=== PATIENT | male | born 1960 | race Caucasian/White ===

== ENCOUNTER → 2017-01-20 | Outpatient (REF) | payer MEDICARE ==
[2017-01-20 21:02] LABS: BANDS 1 % (< 11)
== END ==
LOC: M LAB REF 16:32
PROVIDERS: ATTEND Nurse Practitioner Family
DX: D72.89 Other specified disorders of white blood cells (principal)

== ENCOUNTER 2017-02-03 14:54 | Inpatient (IN) | payer MEDICARE ==
[~2017-02-03] VITALS: Ht 175.3 cm; Wt 74.0 kg
[2017-02-03] MEDS ORDERED: PAXI20TA3 PO (15:25)
[2017-02-03] MEDS ORDERED: DEPA1TAB3 PO ×2 (15:25)
[2017-02-03] MEDS ORDERED: [UNRECOGNIZED DRUG - OTHER] PO (15:25)
[2017-02-03] MEDS ORDERED: DOXE100CA PO (15:25)
[2017-02-03] MEDS ORDERED: RISP4TAB33 PO (15:25)
[2017-02-03] MEDS ORDERED: ASPIRIN 81 MG CHEW TABLET PO ONE (15:30)
[2017-02-03 15:35] LABS: VENOUS BASE EXCESS 3.7 (-2.0-2.0); VENOUS O2 SATURATION 78.2 % (60.0-80.0); VENOUS PARTIAL PRESSURE O2 43.8 mmHg (30.0-50.0); VENOUS STANDARD HCO3 27.2 MEQ/L
[2017-02-03 15:39] LABS: BASO % 0.2 % (0.0-1.0); EOS % 0.4 % (0.0-3.0); LARGE UNSTAINED CELL # 0.1 K/mm3 (0.0-0.4); LARGE UNSTAINED CELL % 1.2 % (0.0-4.0); LYMPH # 1.1 K/mm3 (1.5-4.5); LYMPH % 10.2 % (24.0-44.0); MEAN CORPUSCULAR HEMOGLOBIN 31.4 pg (27.0-33.0); MEAN CORPUSCULAR HGB CONC 33.8 g/dl (32.0-36.5); MEAN CORPUSCULAR VOLUME 92.7 fl (80.0-96.0); MONO # 0.8 K/mm3 (0.0-0.8); NEUTROPHILS # 8.8 K/mm3 (1.8-7.7); PLATELET COUNT, AUTOMATED 213 k/mm3 (150-450); RED CELL DISTRIBUTION WIDTH 12.9 % (11.5-14.5); WHITE BLOOD COUNT 10.9 K/mm3 (4.0-10.0)
--- NOTE | 2017-02-03 15:43 | REP ---
Clinical: Cough. Dyspnea . Comparison: 11/10/2016 . Technique: PA and lateral. Findings: The mediastinum and cardiac silhouette are normal. The lung myles demonstrate chronic stable changes and without acute consolidation, effusion, or pneumothorax. The skeletal structures are intact and normal. Impression: Chronic stable changes. No acute cardiopulmonary process identified. Signed by Robert Dozier MD 02/03/2017 03:34 P
[2017-02-03 15:46] LABS: INR 0.89
[2017-02-03 16:03] LABS: ALBUMIN 3.3 GM/DL (3.2-5.2); ALKALINE PHOSPHATASE 140 U/L (45-117); ALT/SGPT 53 U/L (12-78); ANION GAP 9 MEQ/L (8-16); AST/SGOT 38 U/L (15-37); BILIRUBIN,DIRECT 0.3 MG/DL (0.0-0.2); BILIRUBIN,TOTAL 0.5 MG/DL (0.2-1.0); BLOOD UREA NITROGEN 6 MG/DL (7-18); CALCIUM LEVEL 8.4 MG/DL (8.5-10.1); CARBON DIOXIDE LEVEL 28 MEQ/L (21-32); CHLORIDE LEVEL 98 MEQ/L (98-107); CREATININE FOR GFR 0.68 MG/DL (0.70-1.30); GLOMERULAR FILTRATION RATE > 60.0 (>56); GLUCOSE, FASTING 98 MG/DL (70-105); POTASSIUM SERUM 4.2 MEQ/L (3.5-5.1); SODIUM LEVEL 135 MEQ/L (136-145); TOTAL PROTEIN 6.3 GM/DL (6.4-8.2)
[2017-02-03] MEDS: IPRATROPIUM 0.5MG/ALBUTEROL 2.5MG INH SOL UD 3ML (DUONEB)(J7620) NEB PRN ×4 (16:18→20:25)
[2017-02-03] MEDS ORDERED: ALBUTEROL 90 MCG/ACT 8GM HFA INHALER INH ONE (17:00)
[2017-02-03] MEDS ORDERED: AVEL400T PO (17:35)
--- NOTE | 2017-02-03 17:39 | ECGEPIP ---
Stationary ECG Study [facility] - ED Test Date: 2017-02-03 Pat Name: DILIP MODI Department: Room: - Gender: M Registered Dietician: ct : 1960 Requested By: PILAR RAMOS Order Number: [id number] Reading MD: Gopal Van Measurements Intervals Mercer Rate: 101 P: 68 AL: 156 QRS: 65 QRSD: 125 T: 69 QT: 362 QTc: 471 Interpretive Statements SINUS TACHYCARDIA RIGHT BUNDLE BRANCH BLOCK NO PRIORS Electronically Signed On 02-03-2017 17:39:48 EDT by Gopal Van
[2017-02-03] MEDS ORDERED: MOXIFLOXACIN 400 MG TAB PO ONE (18:00)
[2017-02-03] MEDS ORDERED: ALBUTEROL SULFATE 2.5 MG/0.5 ML INH NEB SOLN NEB ONE ×2 (18:15→20:15)
[2017-02-03] MEDS ORDERED: methylPREDNISolone INJ 125 MG/2 ML VIAL (J2930) IV ONE (18:15)
[2017-02-03] MEDS ORDERED: ISOVUE-370 76% 100ML VIAL (Q9967) As Ordered ONE (18:58)
--- NOTE | 2017-02-03 19:41 | REP ---
Clinical: Shortness of breath. Technique: Axial contrast enhanced images from the thoracic inlet to the upper abdomen using 100 ml Isovue 370 intravenous contrast material with multiplanar re-formations. Comparison: 11/28/2016. Findings: Satisfactory enhancement of the pulmonary vasculature is achieved but evaluation is somewhat limited due to significant respiratory motion artifact. No obvious pulmonary emboli are identified. Lung myles demonstrate diffuse reticulonodular and ground-glass opacities without effusion or pneumothorax. Tracheobronchial tree is patent. Reactive mediastinal and hilar adenopathy noted. Thoracic aorta, heart and pericardium appear normal. Surrounding musculoskeletal structures are intact. Impression: 1. No definite pulmonary embolus. 2. Diffuse bilateral reticulonodular and ground-glass infiltrates suggest early multifocal pneumonia and bronchitis. Differential diagnosis also includes pneumonitis. Correlation and follow up to resolution are recommended. Signed by Robert Dozier MD 02/03/2017 07:33 P
[2017-02-03] MEDS ORDERED: ESTAZOLAM PO (20:41)
[2017-02-03] MEDS ORDERED: CLON0.5T PO (20:41)
[2017-02-03] MEDS ORDERED: NS 1,000 ML IV SCH (20:43)
[2017-02-03] MEDS ORDERED: ONDANSETRON 4MG/2ML VIAL (J2405) IV PRN (20:45)
[2017-02-03] MEDS ORDERED: ACETAMINOPHEN TAB 650MG DOSE (2X325MG) PO PRN (20:45)
[2017-02-03] MEDS ORDERED: ALBUTEROL SULFATE 2.5 MG/0.5 ML INH NEB SOLN INH PRN (21:00)
--- NOTE | 2017-02-03 21:08 | HPEPDOC ---
Medical History and Physical Date of Admission 02/03/17 History and Physical PRIMARY CARE PROVIDER: ATTENDING: Dr. Luz Perales CHIEF COMPLAINT: Short of breath HISTORY OF PRESENT ILLNESS: This is a 57-year-old male past history of bipolar disorder who presents complaining of being unsteady on his feet as well as shortness of breath over the past week. Patient states she's starting to have symptoms of lightheadedness and ataxia about a week ago has seen his primary doctor was prescribed "an equilibrium medication". No focal weakness. Patient also said he's been having shortness of breath at that's progressively worsening over the past week. He was initially dyspneic on exertion and now has progressed to rest. Has a nonproductive cough. No fevers or chills. No sick contacts or recent travels. Had been seen by his primary doctor placed him on a steroid taper as well as antibiotic however does not remember what the name of antibiotic was. In the ED patient was ambulated however desaturated to 85% on room air. Currently requiring 3 L of oxygen. Patient denies chest pain/palpitations. No syncopal episodes. No orthopnea or PND. No lower ext edema. PAST MEDICAL HISTORY: As per HPI PAST SURGICAL HISTORY: Hernia repair, left elbow surgery, left shoulder surgery , appendectomy SOCIAL HISTORY: FAMILY HISTORY: F - [place] age 70 ALLERGIES: Please see below. REVIEW OF SYSTEMS: HEENT: Denies sore throat/headache CARDIOVASCULAR: Denies chest pain/palpitations RESPIRATORY: + shortness of breath/cough GASTROINTESTINAL: Denies nausea/vomiting GENITOURINARY: Denies dysuria/urinary urgency. MUSCULOSKELETAL: Denies myalgias/arthralgias NEUROLOGICAL: Denies any focal weakness Rest of ROS negative. HOME MEDICATIONS: Please see below. PHYSICAL EXAMINATION: Vitals: (see below) General: No acute distress, laying comfortably in bed. HEENT: Moist mucous membranes. Neck: No JVD or lymphadenopathy Cardiac: RRR, No murmurs Pulm: Coarse crackles and exp wheezing b/l. No rhonchi. Abd: NT/ND + BS Ext: No edema or cyanosis Neuro: Strength 5/5 BUE and BLE. CN 2-12 intact. F to N - Mild dysmetria Negative Babinki. States he is unstable on his feet - deferred ambulation at this time. LABORATORY DATA: See below. IMAGING: CTA Chest 02/03/17 Impression: 1. No definite pulmonary embolus. 2. Diffuse bilateral reticulonodular and ground-glass infiltrates suggest early multifocal pneumonia and bronchitis. Differential diagnosis also includes pneumonitis. Correlation and follow up to resolution are recommended. MICROBIOLOGY: Please see below. ASSESSMENT/PLAN: 1. Acute COPD exacerbation secondary to multifocal pneumonia - we'll start patient on broad-spectrum antibiotics as he did fail outpatient therapy. CT scan with likely early stage of multifocal pneumonia. We'll send urine Legionella and strep. Sputum culture. Respiratory panel. Nebulizers. Steroids. 2. Dysmetria/ataxia- patient has agreed to a CAT scan of the head however would like to hold off on MRI of the brain at this time. Neuro checks. Questionable whether this is labyrinthitis from his recent upper respiratory tract infection/ pneumonia. Neuro checks. 3. Tobacco abuse- cessation consult. Nicotine patch. 4. Bipolar disorder- resume home meds 5. DVT prophylaxis- enoxaparin Patient will be followed by Dr. Luz Perales starting 02/04/17 at 7 AM. Vital Signs Vital Signs Date Time Temp Pulse Resp B/P Pulse Ox O2 Delivery O2 Flow Rate FiO2 02/03/17 14:56 99.7 95 20 151/84 Room Air 02/03/17 15:29 91 02/03/17 16:18 3 Laboratory Data Labs 24H Laboratory Tests 2 02/03/17 15:19: Aspartate Amino Transf (AST/SGOT) 38H, Alanine Aminotransferase (ALT/SGPT) 53, Alkaline Phosphatase 140H, Total Bilirubin 0.5, Direct Bilirubin 0.3H, Albumin 3.3, Albumin/Globulin Ratio 1.10, Anion Gap 9, White Blood Count 10.9H, Red Blood Count 4.59, Hemoglobin 14.4, Hematocrit 42.5, Mean Corpuscular Volume 92.7 , Mean Corpuscular Hemoglobin 31.4, Mean Corpuscular Hemoglobin Concent 33.8, Red Cell Distribution Width 12.9, Platelet Count 213, Neutrophils (%) (Auto) 81.0H, Lymphocytes (%) (Auto) 10.2L, Monocytes (%) (Auto) 7.0H, Eosinophils (%) (Auto) 0.4, Basophils (%) (Auto) 0.2, Neutrophils # (Auto) 8.8H, Lymphocytes # ( Auto) 1.1L, Monocytes # (Auto) 0.8, Eosinophils # (Auto) 0.0, Basophils # (Auto ) 0.0, Blood Gas Bicarbonate Standard 27.2, Calcium Level 8.4L, Creatine Kinase MB 1.6, Creatine Kinase MB Relative Index 2.53, D-Dimer, Quantitative 1064.9H, Glomerular Filtration Rate > 60.0, Large Unclassified Cells # 0.1, Large Unclassified Cells % 1.2, Prothromb Time International Ratio 0.89, Prothrombin Time 12.2L, Total Creatine Kinase 63, Total Protein 6.3L, Troponin I < 0.02, Valproic Acid (Depakene) Level 32.3L, Venous Blood Base Excess 3.7H, Venous Blood pH 7.398, Venous Blood Partial Pressure CO2 49.0, Venous Blood Partial Pressure O2 43.8, Venous Blood Total Carbon Dioxide 31.0H, Venous Blood HCO3 29.5H, Venous Blood Oxygen Saturation 78.2 CBC/BMP Laboratory Tests 02/03/17 15:19 Red Blood Count 4.59, Mean Corpuscular Volume 92.7, Mean Corpuscular Hemoglobin 31.4, Mean Corpuscular Hemoglobin Concent 33.8, Red Cell Distribution Width 12.9 , Neutrophils (%) (Auto) 81.0 H, Lymphocytes (%) (Auto) 10.2 L, Monocytes (%) ( Auto) 7.0 H, Eosinophils (%) (Auto) 0.4, Basophils (%) (Auto) 0.2, Neutrophils # (Auto) 8.8 H, Lymphocytes # (Auto) 1.1 L, Monocytes # (Auto) 0.8, Eosinophils # (Auto) 0.0, Basophils # (Auto) 0.0 Home Medications Scheduled (Depakote) 500 Mg Tab 500 MG PO DAILY CANNOT VERIFY MEDICATIONS WITH PHARMACY. ONLY OPEN MON THRU MON 8-5. WILL VERIFY MONDAY. (Depakote) 500 Mg Tab 1,500 MG PO QHS ([Estazolam]) 2 MG PO QHS VERIFIED ON ISTOP, RECEIVED 30 TABLETS ON 11/01/17. PATIENT STATES THE STRENGTH IS .05MG. Clonazepam (Clonazepam) 0.5 Mg Tab 0.5 MG PO DAILY VERIFIED ON ISTOP, RECEIVED 30 TABLETS ON 12/31/16 Doxepin HCl (Doxepin HCl) 100 Mg Cap 100 MG PO QHS Paroxetine Hydrochloride (Paxil) 20 Mg Tab 20 MG PO BID Risperidone (Risperdal) Unknown Strength Tab Unknown Dose PO BID PATIENT STATES HE TAKES 20MG BID... WILL VERIFY WITH PHARMACY ON MONDAY Allergies Coded Allergies: Penicillins (Verified Allergy, Unknown, hives, 02/03/17) JOEL LOPEZ MD Feb 03, 2017 21:08
--- NOTE | 2017-02-03 21:18 | REP ---
Clinical: Ataxia. Findings: Bifrontal atrophy. The ventricles and sulci are symmetric. Gallegos-white differentiation is maintained. There is no evidence for acute intracranial hemorrhage, mass/mass effect, pathology or infarction. No extra-axial fluid collection. Calvarium is intact. Paranasal sinuses and mastoid air cells are clear. Impression: Bifrontal atrophy and age-related changes. No acute intracranial hemorrhage, infarction, or mass/mass effect. Signed by Robert Dozier MD 02/03/2017 09:10 P
[2017-02-03 21:30] LABS: VENOUS BASE EXCESS 0.4 (-2.0-2.0); VENOUS O2 SATURATION 93.8 % (60.0-80.0); VENOUS PARTIAL PRESSURE CO2 30.7 mmHg (38.0-50.0); VENOUS PARTIAL PRESSURE O2 66.3 mmHg (30.0-50.0); VENOUS STANDARD HCO3 24.7 MEQ/L; VENOUS TOTAL CO2 23.7 MEQ/L (24.0-28.0)
--- NOTE | 2017-02-03 22:03 | PHACANCOPD ---
PHARMACY VANCOMYCIN DOSING Pt Demographics Demographics Patient Age:57 , Weight: , Gender: male Adjusted Body Weight Date: 02/03/17, Adjusted Body Weight: Kg Events Past 24 Hours Events Past 24 Hours: YES: Elevation in WBC, Pending Diagnostics Vancomycin Vancomycin indication: pna Vancomycin Target Ranges: 15-20 mcg/ml Vancomycin Load Y/N: Yes Load Dose Date Time Vancomycin Load Dose: 1750mg Date: 02/03/17 Time: 2200 Vancomycin Dose Date: 02/03/17. Current Vancomycin Dose: [1g IV Q8H] Intermittent Dosing?: No Labs Labs Item Value Date Time White Blood Count 10.9 K/mm3 H 02/03/17 1519 Creatinine 0.68 MG/DL L 02/03/17 1519 Micro Microbiology 02/03/17 Blood Culture, Received Pending Creatinine Clearance Date:02/03/17. Estimated Creatinine Clearance: >[100ml/min]. Pending Labs Vancomycin trough scheduled 02/05/17 @0500 Assessment and Plan Maintaining Current Dose?: Yes Reason for dose change: No Dose Change Pharmacist Note Pharmacist Note Date: 02/03/17. Pharmacist note: Day #1 empiric IV levaquin/vancomycin initiated with a 1750mg loading dose, followed by a maintenance regimen of 1g IV Q8H for the treatment of pneumonia - aiming for a goal trough of 15-20mcg/ml. WBC is elevated, and patient is mildly febrile. 02/03/17 CT scan shows "bilateral reticulonodular and ground glass infiltrates." Patient was recently treated with , and failed outpatient antibiotic therapy - that of which is unknown. No PMH of vanco use here at [facility], and MRSA hx is unknown. Blood cultures are currently pending. A vanco trough has been scheduled 02/05/17@0500, prior to the 5th dose. We will continue to monitor and make adjustments as needed. [facility] Feb 03, 2017 22:03
[2017-02-03 22:28] VITALS: BP 163/85
[2017-02-03] MEDS ORDERED: VANCOMYCIN HCL 750 MG, VIAL MATE ADAPTER 1 EACH in D5W 250 ML IV ONE (23:00)
[2017-02-03] MEDS: VANCOMYCIN HCL 1,000 MG, VIAL MATE ADAPTER 1 EACH in D5W 250 ML IV SCH (23:13)
[2017-02-03] MEDS: IPRATROPIUM 0.5MG/ALBUTEROL 2.5MG INH SOL UD 3ML (DUONEB)(J7620) NEB SCH (23:39)
[2017-02-03 23:59] VITALS: BP 178/89
[2017-02-04 04:00] VITALS: BP 165/80
[2017-02-04] MEDS: IPRATROPIUM 0.5MG/ALBUTEROL 2.5MG INH SOL UD 3ML (DUONEB)(J7620) NEB SCH ×6 (04:19→23:50)
[2017-02-04] MEDS: VANCOMYCIN HCL 1,000 MG, VIAL MATE ADAPTER 1 EACH in D5W 250 ML IV SCH (05:04)
[2017-02-04 07:28] LABS: BASO % 0.1 % (0.0-1.0); EOS # 0.1 K/mm3 (0.0-0.50); EOS % 1.1 % (0.0-3.0); LARGE UNSTAINED CELL # 0.1 K/mm3 (0.0-0.4); LARGE UNSTAINED CELL % 0.7 % (0.0-4.0); LYMPH # 0.7 K/mm3 (1.5-4.5); LYMPH % 4.7 % (24.0-44.0); MEAN CORPUSCULAR HEMOGLOBIN 31.3 pg (27.0-33.0); MEAN CORPUSCULAR HGB CONC 33.4 g/dl (32.0-36.5); MEAN CORPUSCULAR VOLUME 93.7 fl (80.0-96.0); MONO # 0.5 K/mm3 (0.0-0.8); NEUTROPHILS # 11.4 K/mm3 (1.8-7.7); NEUTROPHILS % 89.4 % (36.0-66.0); PLATELET COUNT, AUTOMATED 276 k/mm3 (150-450); WHITE BLOOD COUNT 12.7 K/mm3 (4.0-10.0)
[2017-02-04 07:53] LABS: ALBUMIN 2.9 GM/DL (3.2-5.2); ALBUMIN/GLOBULIN RATIO 0.88 (1.00-1.93); ALKALINE PHOSPHATASE 138 U/L (45-117); ALT/SGPT 45 U/L (12-78); ANION GAP 8 MEQ/L (8-16); AST/SGOT 27 U/L (15-37); BILIRUBIN,TOTAL 0.4 MG/DL (0.2-1.0); BLOOD UREA NITROGEN 8 MG/DL (7-18); CARBON DIOXIDE LEVEL 26 MEQ/L (21-32); CHLORIDE LEVEL 102 MEQ/L (98-107); CREATININE FOR GFR 0.68 MG/DL (0.70-1.30); GLOMERULAR FILTRATION RATE > 60.0 (>56); GLUCOSE, FASTING 177 MG/DL (70-105); POTASSIUM SERUM 4.4 MEQ/L (3.5-5.1); SODIUM LEVEL 136 MEQ/L (136-145); TOTAL PROTEIN 6.2 GM/DL (6.4-8.2)
[2017-02-04 08:00] VITALS: BP 182/88
--- NOTE | 2017-02-04 08:41 | REP ---
Clinical: Shortness of breath . Comparison: 02/03/2017 . Findings: The mediastinum and cardiac silhouette are stable and within normal limits for portable technique. The diffuse subtle reticulonodular and ground-glass infiltrates identified on recent chest CT dated 02/03/2017 are not visualized by portable chest x-ray. No new acute consolidation, effusion, or pneumothorax noted. Impression: Known diffuse subtle infiltrates identified on chest CT not visualized by portable x-ray. Signed by Robert Dozier MD 02/04/2017 08:33 A
[2017-02-04] MEDS ORDERED: LevoFLOXacin IV 500 MG in APPROPRIATE DILUENT 1 EA IV SCH (09:00)
[2017-02-04] MEDS: ENOXAPARIN 40 MG/0.4 ML SYRINGE (J1650) SC SCH (09:00)
[2017-02-04] MEDS: predniSONE 20 MG TAB PO SCH (09:22)
[2017-02-04] MEDS: clonazePAM 0.5 MG TAB PO SCH (09:23)
[2017-02-04] MEDS: DIVALPROEX 500 MG TAB PO SCH ×2 (09:23→20:27)
[2017-02-04] MEDS: PARoxetine 20 MG TAB PO SCH ×2 (09:23→20:27)
--- NOTE | 2017-02-04 10:27 | IPNPDOC ---
Subjective Date Seen The patient was seen on 02/04/17. Subjective Chief Complaint/HPI The patient is a 57-year-old male admitted with a reason for visit of Multifocal Pneumonia. Events since last encounter continues to have some shortness of breath and cough , has disbalance and difficulty in walking. No fever or chills, still requiring oxygen supplementation. Objective Physical Examination General Exam: Positive: Alert, Cooperative, No Acute Distress Eye Exam: Positive: Conjunctiva & lids normal, EOMI, PERRLA, Negative: Sclera icteric Neck Exam: Positive: Supple, Negative: JVD, thyromegaly Chest Exam: Positive: Rhonchi, Wheezing Heart Exam: Positive: Normal S1, Normal S2, Rate Normal, Regular Rhythm, Negative: Murmurs, Rubs Telemetry: Positive: No significant arrhythmia Abdomen Exam: Positive: Normal bowel sounds, Soft, Negative: Hepatospenomegaly, Tenderness Extremity Exam: Positive: Normal pulses, Negative: Clubbing, Cyanosis, Edema Skin Exam: Positive: Nl turgor and temperature, Negative: Breakdown, Rash Assessment /Plan Problems (1) Multifocal pneumonia Status: Acute Problem Text: will start on ceftriaxone and continue levofloxacin for atypical coverage. will dc vanco as no history of MRSA (2) Bipolar disorder Status: Chronic Problem Text: continue home medications. (3) Gait abnormality Status: Acute Problem Text: no acute intracranial event will get PT evaluation check orthostatic BPS. (4) Bronchitis Status: Acute Problem Text: continue nebs, steroids and antibiotics. (5) Hypoxia Status: Acute Problem Text: due to multifocal pneumonia and acute bronchitis. continue nebs , prednisone and antibiotics. (6) Hypertension Status: Chronic Problem Text: start on amlodipine bid (7) COPD exacerbation Status: Acute Problem Text: cxr with hyperinflation and bronchiectatic changes will need pft on discharge. bed side spirometry continue nebs and steroids. VS, I&O, 24H, [place] Vital Signs/I&O Vital Signs Date Time Temp Pulse Resp B/P Pulse Ox O2 Delivery O2 Flow Rate FiO2 02/04/17 08:00 97.6 96 22 182/88 90 Nasal Cannula 3.0 I&O- Last 24 Hours up to 6 AM 02/04/17 06:00 Intake Total 745 ml Output Total 1050 ml Balance -305 ml Laboratory Data 24H LABS Laboratory Tests 2 02/03/17 15:19: Aspartate Amino Transf (AST/SGOT) 38H, Alanine Aminotransferase (ALT/SGPT) 53, Alkaline Phosphatase 140H, Total Bilirubin 0.5, Direct Bilirubin 0.3H, Albumin 3.3, Albumin/Globulin Ratio 1.10, Anion Gap 9, White Blood Count 10.9H, Red Blood Count 4.59, Hemoglobin 14.4, Hematocrit 42.5, Mean Corpuscular Volume 92.7 , Mean Corpuscular Hemoglobin 31.4, Mean Corpuscular Hemoglobin Concent 33.8, Red Cell Distribution Width 12.9, Platelet Count 213, Neutrophils (%) (Auto) 81.0H, Lymphocytes (%) (Auto) 10.2L, Monocytes (%) (Auto) 7.0H, Eosinophils (%) (Auto) 0.4, Basophils (%) (Auto) 0.2, Neutrophils # (Auto) 8.8H, Lymphocytes # ( Auto) 1.1L, Monocytes # (Auto) 0.8, Eosinophils # (Auto) 0.0, Basophils # (Auto ) 0.0, Blood Gas Bicarbonate Standard 27.2, Calcium Level 8.4L, Creatine Kinase MB 1.6, Creatine Kinase MB Relative Index 2.53, D-Dimer, Quantitative 1064.9H, Glomerular Filtration Rate > 60.0, Large Unclassified Cells # 0.1, Large Unclassified Cells % 1.2, Prothromb Time International Ratio 0.89, Prothrombin Time 12.2L, Total Creatine Kinase 63, Total Protein 6.3L, Troponin I < 0.02, Valproic Acid (Depakene) Level 32.3L, Venous Blood Base Excess 3.7H, Venous Blood pH 7.398, Venous Blood Partial Pressure CO2 49.0, Venous Blood Partial Pressure O2 43.8, Venous Blood Total Carbon Dioxide 31.0H, Venous Blood HCO3 29.5H, Venous Blood Oxygen Saturation 78.2 02/03/17 21:18: Blood Gas Bicarbonate Standard 24.7, Creatine Kinase MB 1.0, Creatine Kinase MB Relative Index 1.85, Total Creatine Kinase 54, Troponin I < 0.02, Venous Blood Base Excess 0.4, Venous Blood pH 7.488H, Venous Blood Partial Pressure CO2 30.7L , Venous Blood Partial Pressure O2 66.3H, Venous Blood Total Carbon Dioxide 23.7L, Venous Blood HCO3 22.8L, Venous Blood Oxygen Saturation 93.8H, Lactic Acid Level 0.8 02/04/17 00:23: 02/04/17 07:16: Aspartate Amino Transf (AST/SGOT) 27, Alanine Aminotransferase (ALT/SGPT) 45, Alkaline Phosphatase 138H, Total Bilirubin 0.4, Albumin 2.9L, Albumin/Globulin Ratio 0.88L, Anion Gap 8, White Blood Count 12.7H, Red Blood Count 4.36, Hemoglobin 13.7L, Hematocrit 40.9L, Mean Corpuscular Volume 93.7, Mean Corpuscular Hemoglobin 31.3, Mean Corpuscular Hemoglobin Concent 33.4, Red Cell Distribution Width 13.0, Platelet Count 276, Neutrophils (%) (Auto) 89.4H, Lymphocytes (%) (Auto) 4.7L, Monocytes (%) (Auto) 4.0, Eosinophils (%) (Auto) 1.1, Basophils (%) (Auto) 0.1, Neutrophils # (Auto) 11.4H, Lymphocytes # (Auto) 0.7L, Monocytes # (Auto) 0.5, Eosinophils # (Auto) 0.1, Basophils # (Auto) 0.0, Calcium Level 8.0L, Creatine Kinase MB 1.0, Creatine Kinase MB Relative Index 2.17, Glomerular Filtration Rate > 60.0, Large Unclassified Cells # 0.1, Large Unclassified Cells % 0.7, Total Creatine Kinase 46, Total Protein 6.2L, Troponin I < 0.02, Blood Urea Nitrogen 8, Creatinine 0.68L, Sodium Level 136, Potassium Level 4.4, Chloride Level 102, Carbon Dioxide Level 26, C-Reactive Protein, Quantitative 16.20H CBC/BMP Laboratory Tests 02/03/17 15:19 Red Blood Count 4.59, Mean Corpuscular Volume 92.7, Mean Corpuscular Hemoglobin 31.4, Mean Corpuscular Hemoglobin Concent 33.8, Red Cell Distribution Width 12.9 , Neutrophils (%) (Auto) 81.0 H, Lymphocytes (%) (Auto) 10.2 L, Monocytes (%) ( Auto) 7.0 H, Eosinophils (%) (Auto) 0.4, Basophils (%) (Auto) 0.2, Neutrophils # (Auto) 8.8 H, Lymphocytes # (Auto) 1.1 L, Monocytes # (Auto) 0.8, Eosinophils # (Auto) 0.0, Basophils # (Auto) 0.0 02/04/17 07:16 Red Blood Count 4.36, Mean Corpuscular Volume 93.7, Mean Corpuscular Hemoglobin 31.3, Mean Corpuscular Hemoglobin Concent 33.4, Red Cell Distribution Width 13.0 , Neutrophils (%) (Auto) 89.4 H, Lymphocytes (%) (Auto) 4.7 L, Monocytes (%) ( Auto) 4.0, Eosinophils (%) (Auto) 1.1, Basophils (%) (Auto) 0.1, Neutrophils # ( Auto) 11.4 H, Lymphocytes # (Auto) 0.7 L, Monocytes # (Auto) 0.5, Eosinophils # (Auto) 0.1, Basophils # (Auto) 0.0, Calcium Level 8.0 L, Aspartate Amino Transf (AST/SGOT) 27, Alanine Aminotransferase (ALT/SGPT) 45, Total Creatine Kinase 46 , Alkaline Phosphatase 138 H, Total Bilirubin 0.4, Total Protein 6.2 L, Albumin 2.9 L Microbiology Microbiology 02/03/17 Blood Culture, Received Pending 02/04/17 Respiratory Virus Panel (PCR) ([facility]) - Final, Complete LUDA EDGAR MD Feb 04, 2017 10:27
[2017-02-04] MEDS ORDERED: diphenhydrAMINE INJ 50MG/ML VIAL (J1200) IV ONE (10:45)
[2017-02-04] MEDS: amLODIPine 5 MG TAB PO SCH ×2 (11:15→20:28)
[2017-02-04] MEDS: cefTRIAXone SOD 1 GM in D5W MINI-BAG PLUS 50 ML IV SCH ×2 (11:59→23:11)
[2017-02-04 12:00] VITALS: BP 163/87
[2017-02-04 16:00] VITALS: BP 152/76
[2017-02-04 18:00] VITALS: BP 162/76
[2017-02-04] MEDS: DOXEPIN 25 MG CAP PO SCH (20:27)
[2017-02-04 22:00] VITALS: BP 146/83
[2017-02-05 02:00] VITALS: BP 150/72
[2017-02-05] MEDS: IPRATROPIUM 0.5MG/ALBUTEROL 2.5MG INH SOL UD 3ML (DUONEB)(J7620) NEB SCH ×6 (03:16→23:47)
[2017-02-05 05:30] LABS: BASO % 0.3 % (0.0-1.0); EOS % 0.3 % (0.0-3.0); LARGE UNSTAINED CELL # 0.2 K/mm3 (0.0-0.4); LARGE UNSTAINED CELL % 1.2 % (0.0-4.0); LYMPH # 1.5 K/mm3 (1.5-4.5); LYMPH % 11.9 % (24.0-44.0); MEAN CORPUSCULAR HGB CONC 33.7 g/dl (32.0-36.5); MEAN CORPUSCULAR VOLUME 92.2 fl (80.0-96.0); MONO # 1.1 K/mm3 (0.0-0.8); MONO % 8.8 % (0.0-5.0); NEUTROPHILS # 9.7 K/mm3 (1.8-7.7); NEUTROPHILS % 77.4 % (36.0-66.0); RED CELL DISTRIBUTION WIDTH 12.9 % (11.5-14.5); WHITE BLOOD COUNT 12.6 K/mm3 (4.0-10.0)
[2017-02-05 05:39] LABS: PLATELET COUNT, AUTOMATED 374 k/mm3 (150-450)
[2017-02-05 05:47] LABS: ALBUMIN 2.5 GM/DL (3.2-5.2); ALBUMIN/GLOBULIN RATIO 0.64 (1.00-1.93); ALKALINE PHOSPHATASE 131 U/L (45-117); ALT/SGPT 50 U/L (12-78); ANION GAP 8 MEQ/L (8-16); AST/SGOT 32 U/L (15-37); BILIRUBIN,TOTAL 0.2 MG/DL (0.2-1.0); BLOOD UREA NITROGEN 10 MG/DL (7-18); CALCIUM LEVEL 8.4 MG/DL (8.5-10.1); CARBON DIOXIDE LEVEL 26 MEQ/L (21-32); CHLORIDE LEVEL 107 MEQ/L (98-107); CREATININE FOR GFR 0.72 MG/DL (0.70-1.30); GLOMERULAR FILTRATION RATE > 60.0 (>56); GLUCOSE, FASTING 94 MG/DL (70-105); POTASSIUM SERUM 4.3 MEQ/L (3.5-5.1); SODIUM LEVEL 141 MEQ/L (136-145); TOTAL PROTEIN 6.4 GM/DL (6.4-8.2)
[2017-02-05 06:00] VITALS: BP 152/72
--- NOTE | 2017-02-05 06:11 | IPNPDOC ---
Subjective Date Seen The patient was seen on 02/05/17. Subjective Chief Complaint/HPI The patient is a 57-year-old male admitted with a reason for visit of Multifocal Pneumonia. Events since last encounter no new complaints ,continues to have cough , still requiring oxygen, did work with PT yesterday but became easily fatigued and sob . no fever or chills no chest pain. no nausea or vomiting or diarrhea. Objective Physical Examination General Exam: Positive: Alert, Cooperative, No Acute Distress Eye Exam: Positive: Conjunctiva & lids normal, EOMI, PERRLA, Negative: Sclera icteric Neck Exam: Positive: Supple, Negative: JVD, thyromegaly Chest Exam: Positive: Rhonchi, Wheezing Heart Exam: Positive: Normal S1, Normal S2, Rate Normal, Regular Rhythm, Negative: Murmurs, Rubs Telemetry: Positive: No significant arrhythmia Abdomen Exam: Positive: Normal bowel sounds, Soft, Negative: Hepatospenomegaly, Tenderness Extremity Exam: Positive: Normal pulses, Negative: Clubbing, Cyanosis, Edema Skin Exam: Positive: Nl turgor and temperature, Negative: Breakdown, Rash Assessment /Plan Problems (1) Multifocal pneumonia Status: Acute Problem Text: will start on ceftriaxone and continue levofloxacin for atypical coverage. will dc vanco as no history of MRSA (2) Bipolar disorder Status: Chronic Problem Text: continue home medications. (3) Gait abnormality Status: Acute Problem Text: no acute intracranial event will get PT evaluation check orthostatic BPS. (4) Bronchitis Status: Acute Problem Text: continue nebs, steroids and antibiotics. (5) Hypoxia Status: Acute Problem Text: due to multifocal pneumonia and acute bronchitis. continue nebs , prednisone and antibiotics. (6) Hypertension Status: Chronic Problem Text: start on amlodipine bid (7) COPD exacerbation Status: Acute Problem Text: cxr with hyperinflation and bronchiectatic changes will need pft on discharge. bed side spirometry continue nebs and steroids. Plan/VTE VTE Prophylaxis Ordered?: Yes VS, I&O, 24H, Jeremías Vital Signs/I&O Vital Signs Date Time Temp Pulse Resp B/P Pulse Ox O2 Delivery O2 Flow Rate FiO2 02/05/17 06:00 98.2 98 20 152/72 92 Nasal Cannula 2.0 I&O- Last 24 Hours up to 6 AM 02/05/17 05:59 Intake Total 2040 ml Output Total 1600 ml Balance 440 ml Laboratory Data 24H LABS Laboratory Tests 2 02/04/17 07:16: Blood Urea Nitrogen 8, Creatinine 0.68L, Sodium Level 136, Potassium Level 4.4, Chloride Level 102, Carbon Dioxide Level 26, Calcium Level 8.0L, Aspartate Amino Transf (AST/SGOT) 27, Alanine Aminotransferase (ALT/SGPT) 45, Total Creatine Kinase 46, Alkaline Phosphatase 138H, Total Bilirubin 0.4, Total Protein 6.2L, Albumin 2.9L, Albumin/Globulin Ratio 0.88L, Anion Gap 8, White Blood Count 12.7H, Red Blood Count 4.36, Hemoglobin 13.7L, Hematocrit 40.9L, Mean Corpuscular Volume 93.7, Mean Corpuscular Hemoglobin 31.3, Mean Corpuscular Hemoglobin Concent 33.4, Red Cell Distribution Width 13.0, Platelet Count 276, Neutrophils (%) (Auto) 89.4H, Lymphocytes (%) (Auto) 4.7L, Monocytes (%) (Auto) 4.0, Eosinophils (%) (Auto) 1.1, Basophils (%) (Auto) 0.1, Neutrophils # (Auto) 11.4H, Lymphocytes # (Auto) 0.7L, Monocytes # (Auto) 0.5, Eosinophils # (Auto) 0.1, Basophils # (Auto) 0.0, C-Reactive Protein, Quantitative 16.20H, Creatine Kinase MB 1.0, Creatine Kinase MB Relative Index 2.17, Glomerular Filtration Rate > 60.0, Large Unclassified Cells # 0.1, Large Unclassified Cells % 0.7, Troponin I < 0.02 02/05/17 05:05: Blood Urea Nitrogen 10, Creatinine 0.72, Sodium Level 141, Potassium Level 4.3, Chloride Level 107, Carbon Dioxide Level 26, Calcium Level 8.4L, Aspartate Amino Transf (AST/SGOT) 32, Alanine Aminotransferase (ALT/SGPT) 50, Alkaline Phosphatase 131H, Total Bilirubin 0.2, Total Protein 6.4, Albumin 2.5L, Albumin/ Globulin Ratio 0.64L, Anion Gap 8, White Blood Count 12.6H, Red Blood Count 4.21L, Hemoglobin 13.1L, Hematocrit 38.8L, Mean Corpuscular Volume 92.2, Mean Corpuscular Hemoglobin 31.0, Mean Corpuscular Hemoglobin Concent 33.7, Red Cell Distribution Width 12.9, Platelet Count 374, Neutrophils (%) (Auto) 77.4H, Lymphocytes (%) (Auto) 11.9L, Monocytes (%) (Auto) 8.8H, Eosinophils (%) (Auto) 0.3, Basophils (%) (Auto) 0.3, Neutrophils # (Auto) 9.7H, Lymphocytes # (Auto) 1.5, Monocytes # (Auto) 1.1H, Eosinophils # (Auto) 0.0, Basophils # (Auto) 0.0, C-Reactive Protein, Quantitative 11.00H, Glomerular Filtration Rate > 60.0, Large Unclassified Cells # 0.2, Large Unclassified Cells % 1.2 CBC/BMP Laboratory Tests 02/04/17 07:16 Calcium Level 8.0 L, Aspartate Amino Transf (AST/SGOT) 27, Alanine Aminotransferase (ALT/SGPT) 45, Total Creatine Kinase 46, Alkaline Phosphatase 138 H, Total Bilirubin 0.4, Total Protein 6.2 L, Albumin 2.9 L, Red Blood Count 4.36, Mean Corpuscular Volume 93.7, Mean Corpuscular Hemoglobin 31.3, Mean Corpuscular Hemoglobin Concent 33.4, Red Cell Distribution Width 13.0, Neutrophils (%) (Auto) 89.4 H, Lymphocytes (%) (Auto) 4.7 L, Monocytes (%) (Auto ) 4.0, Eosinophils (%) (Auto) 1.1, Basophils (%) (Auto) 0.1, Neutrophils # (Auto ) 11.4 H, Lymphocytes # (Auto) 0.7 L, Monocytes # (Auto) 0.5, Eosinophils # ( Auto) 0.1, Basophils # (Auto) 0.0 02/05/17 05:05 Calcium Level 8.4 L, Aspartate Amino Transf (AST/SGOT) 32, Alanine Aminotransferase (ALT/SGPT) 50, Alkaline Phosphatase 131 H, Total Bilirubin 0.2 , Total Protein 6.4, Albumin 2.5 L, Red Blood Count 4.21 L, Mean Corpuscular Volume 92.2, Mean Corpuscular Hemoglobin 31.0, Mean Corpuscular Hemoglobin Concent 33.7, Red Cell Distribution Width 12.9, Neutrophils (%) (Auto) 77.4 H, Lymphocytes (%) (Auto) 11.9 L, Monocytes (%) (Auto) 8.8 H, Eosinophils (%) (Auto ) 0.3, Basophils (%) (Auto) 0.3, Neutrophils # (Auto) 9.7 H, Lymphocytes # (Auto ) 1.5, Monocytes # (Auto) 1.1 H, Eosinophils # (Auto) 0.0, Basophils # (Auto) 0.0 Microbiology Microbiology 02/03/17 Blood Culture - Preliminary, Resulted No growth after 24 hours . All specim... 02/04/17 Respiratory Virus Panel (PCR) ([facility]) - Final, Complete LUDA EDGAR MD Feb 05, 2017 06:11
[2017-02-05] MEDS: LevoFLOXacin 500 MG TABLET PO SCH (06:51)
[2017-02-05] MEDS: clonazePAM 0.5 MG TAB PO SCH (09:18)
[2017-02-05] MEDS: DIVALPROEX 500 MG TAB PO SCH ×2 (09:19→20:09)
[2017-02-05] MEDS: predniSONE 20 MG TAB PO SCH (09:19)
[2017-02-05] MEDS: PARoxetine 20 MG TAB PO SCH ×2 (09:19→20:10)
[2017-02-05] MEDS: ENOXAPARIN 40 MG/0.4 ML SYRINGE (J1650) SC SCH (09:20)
[2017-02-05] MEDS: amLODIPine 5 MG TAB PO SCH ×2 (09:20→20:10)
[2017-02-05] MEDS: cefTRIAXone SOD 1 GM in D5W MINI-BAG PLUS 50 ML IV SCH ×2 (09:23→23:53)
[2017-02-05] MEDS: DOXEPIN 25 MG CAP PO SCH (20:10)
[2017-02-05 22:00] VITALS: BP 155/92
[2017-02-06] MEDS: IPRATROPIUM 0.5MG/ALBUTEROL 2.5MG INH SOL UD 3ML (DUONEB)(J7620) NEB SCH ×4 (03:39→14:55)
[2017-02-06] MEDS: LevoFLOXacin 500 MG TABLET PO SCH (05:59)
[2017-02-06 06:00] VITALS: BP 163/95
[2017-02-06 06:21] LABS: BASO % 0.3 % (0.0-1.0); EOS % 0.3 % (0.0-3.0); LARGE UNSTAINED CELL # 0.2 K/mm3 (0.0-0.4); LARGE UNSTAINED CELL % 1.6 % (0.0-4.0); LYMPH # 1.6 K/mm3 (1.5-4.5); LYMPH % 15.2 % (24.0-44.0); MEAN CORPUSCULAR HEMOGLOBIN 30.9 pg (27.0-33.0); MEAN CORPUSCULAR HGB CONC 33.1 g/dl (32.0-36.5); MEAN CORPUSCULAR VOLUME 93.5 fl (80.0-96.0); MONO # 0.8 K/mm3 (0.0-0.8); MONO % 7.7 % (0.0-5.0); NEUTROPHILS # 7.8 K/mm3 (1.8-7.7); PLATELET COUNT, AUTOMATED 485 k/mm3 (150-450); WHITE BLOOD COUNT 10.4 K/mm3 (4.0-10.0)
[2017-02-06 06:41] LABS: ALBUMIN 2.5 GM/DL (3.2-5.2); ALKALINE PHOSPHATASE 151 U/L (45-117); ALT/SGPT 65 U/L (12-78); ANION GAP 9 MEQ/L (8-16); AST/SGOT 40 U/L (15-37); BILIRUBIN,TOTAL 0.3 MG/DL (0.2-1.0); BLOOD UREA NITROGEN 12 MG/DL (7-18); CALCIUM LEVEL 8.8 MG/DL (8.5-10.1); CARBON DIOXIDE LEVEL 26 MEQ/L (21-32); CHLORIDE LEVEL 103 MEQ/L (98-107); GLOMERULAR FILTRATION RATE > 60.0 (>56); GLUCOSE, FASTING 80 MG/DL (70-105); POTASSIUM SERUM 3.8 MEQ/L (3.5-5.1); SODIUM LEVEL 138 MEQ/L (136-145); TOTAL PROTEIN 6.7 GM/DL (6.4-8.2)
[2017-02-06 07:55] VITALS: O2SAT 90
[2017-02-06] MEDS: clonazePAM 0.5 MG TAB PO SCH (08:18)
[2017-02-06] MEDS: ENOXAPARIN 40 MG/0.4 ML SYRINGE (J1650) SC SCH (08:18)
[2017-02-06] MEDS: PARoxetine 20 MG TAB PO SCH ×2 (08:18→20:26)
[2017-02-06] MEDS: predniSONE 20 MG TAB PO SCH (08:18)
[2017-02-06] MEDS: amLODIPine 5 MG TAB PO SCH ×2 (08:18→20:26)
[2017-02-06] MEDS: DIVALPROEX 500 MG TAB PO SCH ×2 (08:19→20:26)
--- NOTE | 2017-02-06 08:53 | IPNPDOC ---
Subjective Date Seen The patient was seen on 02/06/17. Subjective Chief Complaint/HPI The patient is a 57-year-old male admitted with a reason for visit of Multifocal Pneumonia. Events since last encounter continues to be SOB , still requiring 3 liters of oxygen , still shaky and tremulus however better today, no fever or chills, no nausea or vomiting or diarrhea. Objective Physical Examination General Exam: Positive: Alert, Cooperative, No Acute Distress Eye Exam: Positive: Conjunctiva & lids normal, EOMI, PERRLA, Negative: Sclera icteric Neck Exam: Positive: Supple, Negative: JVD, thyromegaly Chest Exam: Positive: Rhonchi, Wheezing Heart Exam: Positive: Normal S1, Normal S2, Rate Normal, Regular Rhythm, Negative: Murmurs, Rubs Telemetry: Positive: No significant arrhythmia Abdomen Exam: Positive: Normal bowel sounds, Soft, Negative: Hepatospenomegaly, Tenderness Extremity Exam: Positive: Normal pulses, Negative: Clubbing, Cyanosis, Edema Skin Exam: Positive: Nl turgor and temperature, Negative: Breakdown, Rash Assessment /Plan Problems (1) COPD exacerbation Status: Acute Problem Text: cxr with hyperinflation and bronchiectatic changes will need pft on discharge. continue nebs and steroids. \ smoker. (2) Multifocal pneumonia Status: Acute Problem Text: will start on ceftriaxone and continue levofloxacin for atypical coverage. will dc vanco as no history of MRSA (3) Bipolar disorder Status: Chronic Problem Text: continue home medications. (4) Gait abnormality Status: Acute Problem Text: no acute intracranial event will get PT evaluation check orthostatic BPS. (5) Bronchitis Status: Acute Problem Text: continue nebs, steroids and antibiotics. (6) Hypoxia Status: Acute Problem Text: due to multifocal pneumonia and acute bronchitis. continue nebs , prednisone and antibiotics. (7) Hypertension Status: Chronic Problem Text: start on amlodipine bid Plan/VTE VTE Prophylaxis Ordered?: Yes VS, I&O, 24H, Fishbone Vital Signs/I&O Vital Signs Date Time Temp Pulse Resp B/P Pulse Ox O2 Delivery O2 Flow Rate FiO2 02/06/17 08:18 93 163/95 02/06/17 07:55 90 Nasal Cannula 3.0 02/06/17 06:00 99.5 18 I&O- Last 24 Hours up to 6 AM 02/06/17 06:00 Intake Total 1970 ml Output Total 2152 ml Balance -182 ml Laboratory Data 24H LABS Laboratory Tests 2 02/06/17 05:58: Blood Urea Nitrogen 12, Creatinine 0.70, Sodium Level 138, Potassium Level 3.8, Chloride Level 103, Carbon Dioxide Level 26, Calcium Level 8.8, Aspartate Amino Transf (AST/SGOT) 40H, Alanine Aminotransferase (ALT/SGPT) 65, Alkaline Phosphatase 151H, Total Bilirubin 0.3, Total Protein 6.7, Albumin 2.5L, Albumin/ Globulin Ratio 0.60L, Anion Gap 9, White Blood Count 10.4H, Red Blood Count 4.26L, Hemoglobin 13.2L, Hematocrit 39.9L, Mean Corpuscular Volume 93.5, Mean Corpuscular Hemoglobin 30.9, Mean Corpuscular Hemoglobin Concent 33.1, Red Cell Distribution Width 13.0, Platelet Count 485H, Neutrophils (%) (Auto) 75.0H, Lymphocytes (%) (Auto) 15.2L, Monocytes (%) (Auto) 7.7H, Eosinophils (%) (Auto) 0.3, Basophils (%) (Auto) 0.3, Neutrophils # (Auto) 7.8H, Lymphocytes # (Auto) 1.6, Monocytes # (Auto) 0.8, Eosinophils # (Auto) 0.0, Basophils # (Auto) 0.0, C -Reactive Protein, Quantitative 10.80H, Glomerular Filtration Rate > 60.0, Large Unclassified Cells # 0.2, Large Unclassified Cells % 1.6 CBC/BMP Laboratory Tests 02/06/17 05:58 Calcium Level 8.8, Aspartate Amino Transf (AST/SGOT) 40 H, Alanine Aminotransferase (ALT/SGPT) 65, Alkaline Phosphatase 151 H, Total Bilirubin 0.3 , Total Protein 6.7, Albumin 2.5 L, Red Blood Count 4.26 L, Mean Corpuscular Volume 93.5, Mean Corpuscular Hemoglobin 30.9, Mean Corpuscular Hemoglobin Concent 33.1, Red Cell Distribution Width 13.0, Neutrophils (%) (Auto) 75.0 H, Lymphocytes (%) (Auto) 15.2 L, Monocytes (%) (Auto) 7.7 H, Eosinophils (%) (Auto ) 0.3, Basophils (%) (Auto) 0.3, Neutrophils # (Auto) 7.8 H, Lymphocytes # (Auto ) 1.6, Monocytes # (Auto) 0.8, Eosinophils # (Auto) 0.0, Basophils # (Auto) 0.0 Microbiology Microbiology 02/03/17 Blood Culture - Preliminary, Resulted No Growth after 48 hours. All Specime... 02/04/17 Respiratory Virus Panel (PCR) ([facility]) - Final, Complete LUDA EDGAR MD Feb 06, 2017 08:53
[2017-02-06] MEDS: cefTRIAXone SOD 1 GM in D5W MINI-BAG PLUS 50 ML IV SCH ×2 (10:31→22:30)
[2017-02-06] MEDS ORDERED: RISP2TAB3 PO (10:48)
[2017-02-06] MEDS ORDERED: DEPA500T2 PO ×2 (10:48)
[2017-02-06] MEDS ORDERED: DOXE150C7 PO (10:48)
[2017-02-06] MEDS: TIOTROPIUM INHALER/CAPSULE (SPIRIVA) INH SCH (11:01)
[2017-02-06] MEDS: FORMOTEROL FUMARATE 20 MCG/2 ML INHALATION SOLUTION (PERFOROMIST) INH SCH ×2 (11:01→21:10)
[2017-02-06] MEDS: BUDESONIDE 0.5 MG/2 ML INHALATION SUSPENSION INH SCH ×2 (11:02→21:10)
[2017-02-06] MEDS: risperiDONE 2 MG TAB PO SCH ×2 (12:12→20:26)
[2017-02-06 14:00] VITALS: BP 134/78
[2017-02-06] MEDS ORDERED: IPRATROPIUM 0.5MG/ALBUTEROL 2.5MG INH SOL UD 3ML (DUONEB)(J7620) NEB SCH (14:00)
[2017-02-06] MEDS ORDERED: FORMOTEROL FUMARATE 20 MCG/2 ML INHALATION SOLUTION (PERFOROMIST) INH SCH (20:00)
[2017-02-06] MEDS: DOXEPIN 25 MG CAP PO SCH (20:26)
[2017-02-06 22:00] VITALS: BP 166/80
[2017-02-07] MEDS: LevoFLOXacin 500 MG TABLET PO SCH (05:09)
[2017-02-07 06:00] VITALS: BP 148/82
[2017-02-07 06:53] LABS: BASO % 0.5 % (0.0-1.0); EOS % 0.2 % (0.0-3.0); LARGE UNSTAINED CELL # 0.2 K/mm3 (0.0-0.4); LARGE UNSTAINED CELL % 2.3 % (0.0-4.0); LYMPH # 1.8 K/mm3 (1.5-4.5); LYMPH % 19.5 % (24.0-44.0); MEAN CORPUSCULAR HEMOGLOBIN 31.5 pg (27.0-33.0); MEAN CORPUSCULAR HGB CONC 33.5 g/dl (32.0-36.5); MONO # 0.7 K/mm3 (0.0-0.8); MONO % 7.7 % (0.0-5.0); NEUTROPHILS # 6.6 K/mm3 (1.8-7.7); NEUTROPHILS % 69.8 % (36.0-66.0); PLATELET COUNT, AUTOMATED 497 k/mm3 (150-450); RED CELL DISTRIBUTION WIDTH 12.8 % (11.5-14.5); WHITE BLOOD COUNT 9.5 K/mm3 (4.0-10.0)
[2017-02-07 07:01] LABS: ALBUMIN 2.5 GM/DL (3.2-5.2); ALKALINE PHOSPHATASE 152 U/L (45-117); ALT/SGPT 68 U/L (12-78); ANION GAP 8 MEQ/L (8-16); AST/SGOT 27 U/L (15-37); BILIRUBIN,TOTAL 0.3 MG/DL (0.2-1.0); BLOOD UREA NITROGEN 14 MG/DL (7-18); CALCIUM LEVEL 9.4 MG/DL (8.5-10.1); CARBON DIOXIDE LEVEL 29 MEQ/L (21-32); CHLORIDE LEVEL 102 MEQ/L (98-107); CREATININE FOR GFR 0.78 MG/DL (0.70-1.30); GLOMERULAR FILTRATION RATE > 60.0 (>56); GLUCOSE, FASTING 76 MG/DL (70-105); POTASSIUM SERUM 3.9 MEQ/L (3.5-5.1); SODIUM LEVEL 139 MEQ/L (136-145); TOTAL PROTEIN 6.7 GM/DL (6.4-8.2)
[2017-02-07] MEDS: BUDESONIDE 0.5 MG/2 ML INHALATION SUSPENSION INH SCH ×2 (07:49→21:10)
[2017-02-07] MEDS: FORMOTEROL FUMARATE 20 MCG/2 ML INHALATION SOLUTION (PERFOROMIST) INH SCH ×2 (07:50→21:10)
[2017-02-07] MEDS: TIOTROPIUM INHALER/CAPSULE (SPIRIVA) INH SCH (07:50)
[2017-02-07] MEDS: IPRATROPIUM 0.5MG/ALBUTEROL 2.5MG INH SOL UD 3ML (DUONEB)(J7620) NEB SCH ×4 (07:50→23:15)
[2017-02-07] MEDS: clonazePAM 0.5 MG TAB PO SCH (08:30)
[2017-02-07] MEDS: predniSONE 20 MG TAB PO SCH (08:30)
[2017-02-07] MEDS: DIVALPROEX 500 MG TAB PO SCH ×2 (08:30→20:21)
[2017-02-07] MEDS: risperiDONE 2 MG TAB PO SCH ×2 (08:31→20:22)
[2017-02-07] MEDS: amLODIPine 5 MG TAB PO SCH ×2 (08:31→20:22)
[2017-02-07] MEDS: ENOXAPARIN 40 MG/0.4 ML SYRINGE (J1650) SC SCH (08:31)
[2017-02-07] MEDS: PARoxetine 20 MG TAB PO SCH ×2 (08:31→20:22)
[2017-02-07 10:00] VITALS: BP 140/70
[2017-02-07] MEDS: cefTRIAXone SOD 1 GM in D5W MINI-BAG PLUS 50 ML IV SCH ×2 (10:27→22:38)
[2017-02-07 14:00] VITALS: BP 138/74
--- NOTE | 2017-02-07 14:38 | IPNPDOC ---
Subjective Date Seen The patient was seen on 02/07/17. Subjective Chief Complaint/HPI The patient is a 57-year-old male admitted with a reason for visit of Multifocal Pneumonia. Events since last encounter pt seen and examined, still on oxygen Constitutional: Denies: Chills, Fever, Night Sweats Pulmonary: Denies: Cough, Dyspnea Cardiovascular: Denies: Chest Pain, Lt Headedness, Orthopnea, Palpitations, Paroxysmal Noc. Dyspnea Objective Physical Examination General Exam: Positive: Alert, Cooperative, No Acute Distress Eye Exam: Positive: Conjunctiva & lids normal, EOMI, PERRLA, Negative: Sclera icteric Neck Exam: Positive: Supple, Negative: JVD, thyromegaly Chest Exam: Positive: Rhonchi, Wheezing Heart Exam: Positive: Normal S1, Normal S2, Rate Normal, Regular Rhythm, Negative: Murmurs, Rubs Telemetry: Positive: No significant arrhythmia Abdomen Exam: Positive: Normal bowel sounds, Soft, Negative: Hepatospenomegaly, Tenderness Extremity Exam: Positive: Normal pulses, Negative: Clubbing, Cyanosis, Edema Skin Exam: Positive: Nl turgor and temperature, Negative: Breakdown, Rash Assessment /Plan Problems (1) COPD exacerbation Status: Acute Response to Treatment: Improving Problem Text: cxr with hyperinflation and bronchiectatic changes will need pft on discharge. continue nebs and steroids. smoker. (2) Multifocal pneumonia Status: Acute Problem Text: continue ceftriaxone and continue levofloxacin for atypical coverage. still requiring oxygen (3) Bipolar disorder Status: Chronic Problem Text: continue home medications. (4) Gait abnormality Status: Acute Problem Text: no acute intracranial event will get PT evaluation check orthostatic BPS. (5) Bronchitis Status: Acute Problem Text: continue nebs, steroids and antibiotics. (6) Hypoxia Status: Acute Problem Text: due to multifocal pneumonia and acute bronchitis. continue nebs , prednisone and antibiotics. (7) Hypertension Status: Chronic Problem Text: start on amlodipine bid Plan/VTE VTE Prophylaxis Ordered?: Yes VS, I&O, 24H, Fishbone Vital Signs/I&O Vital Signs Date Time Temp Pulse Resp B/P Pulse Ox O2 Delivery O2 Flow Rate FiO2 02/07/17 10:00 98.6 106 18 140/70 100 Nasal Cannula 2.5 I&O- Last 24 Hours up to 6 AM 02/07/17 05:59 Intake Total 940 ml Output Total 300 ml Balance 640 ml Laboratory Data 24H LABS Laboratory Tests 2 02/07/17 06:10: Blood Urea Nitrogen 14, Creatinine 0.78, Sodium Level 139, Potassium Level 3.9, Chloride Level 102, Carbon Dioxide Level 29, Calcium Level 9.4, Aspartate Amino Transf (AST/SGOT) 27, Alanine Aminotransferase (ALT/SGPT) 68, Alkaline Phosphatase 152H, Total Bilirubin 0.3, Total Protein 6.7, Albumin 2.5L, Albumin/ Globulin Ratio 0.60L, Anion Gap 8, White Blood Count 9.5, Red Blood Count 4.35, Hemoglobin 13.7L, Hematocrit 40.9L, Mean Corpuscular Volume 94.0, Mean Corpuscular Hemoglobin 31.5, Mean Corpuscular Hemoglobin Concent 33.5, Red Cell Distribution Width 12.8, Platelet Count 497H, Neutrophils (%) (Auto) 69.8H, Lymphocytes (%) (Auto) 19.5L, Monocytes (%) (Auto) 7.7H, Eosinophils (%) (Auto) 0.2, Basophils (%) (Auto) 0.5, Neutrophils # (Auto) 6.6, Lymphocytes # (Auto) 1.8, Monocytes # (Auto) 0.7, Eosinophils # (Auto) 0.0, Basophils # (Auto) 0.0, C -Reactive Protein, Quantitative 9.55H, Glomerular Filtration Rate > 60.0, Large Unclassified Cells # 0.2, Large Unclassified Cells % 2.3 CBC/BMP Laboratory Tests 02/07/17 06:10 Calcium Level 9.4, Aspartate Amino Transf (AST/SGOT) 27, Alanine Aminotransferase (ALT/SGPT) 68, Alkaline Phosphatase 152 H, Total Bilirubin 0.3 , Total Protein 6.7, Albumin 2.5 L, Red Blood Count 4.35, Mean Corpuscular Volume 94.0, Mean Corpuscular Hemoglobin 31.5, Mean Corpuscular Hemoglobin Concent 33.5, Red Cell Distribution Width 12.8, Neutrophils (%) (Auto) 69.8 H, Lymphocytes (%) (Auto) 19.5 L, Monocytes (%) (Auto) 7.7 H, Eosinophils (%) (Auto ) 0.2, Basophils (%) (Auto) 0.5, Neutrophils # (Auto) 6.6, Lymphocytes # (Auto) 1.8, Monocytes # (Auto) 0.7, Eosinophils # (Auto) 0.0, Basophils # (Auto) 0.0 Microbiology Microbiology 02/03/17 Blood Culture - Preliminary, Resulted No Growth after 72 hours. All specime... 02/04/17 Respiratory Virus Panel (PCR) ([facility]) - Final, Complete KRISTI PEDRAZA DO Feb 07, 2017 14:38
[2017-02-07 20:00] VITALS: BP 159/88
[2017-02-07] MEDS: DOXEPIN 25 MG CAP PO SCH (20:22)
[2017-02-08] VITALS (7 sets, daily range): BP systolic 123–147; BP diastolic 67–80; O2SAT 92
[2017-02-08] MEDS: LevoFLOXacin 500 MG TABLET PO SCH (05:17)
[2017-02-08 07:06] LABS: MEAN CORPUSCULAR HEMOGLOBIN 31.4 pg (27.0-33.0); MEAN CORPUSCULAR HGB CONC 33.7 g/dl (32.0-36.5); MEAN CORPUSCULAR VOLUME 93.3 fl (80.0-96.0); PLATELET COUNT, AUTOMATED 459 k/mm3 (150-450)
[2017-02-08 07:18] LABS: ALBUMIN 2.6 GM/DL (3.2-5.2); ALBUMIN/GLOBULIN RATIO 0.74 (1.00-1.93); ALKALINE PHOSPHATASE 150 U/L (45-117); ALT/SGPT 63 U/L (12-78); ANION GAP 7 MEQ/L (8-16); AST/SGOT 27 U/L (15-37); BILIRUBIN,TOTAL 0.2 MG/DL (0.2-1.0); BLOOD UREA NITROGEN 17 MG/DL (7-18); CARBON DIOXIDE LEVEL 29 MEQ/L (21-32); CHLORIDE LEVEL 103 MEQ/L (98-107); CREATININE FOR GFR 0.82 MG/DL (0.70-1.30); GLOMERULAR FILTRATION RATE > 60.0 (>56); GLUCOSE, FASTING 77 MG/DL (70-105); POTASSIUM SERUM 4.2 MEQ/L (3.5-5.1); SODIUM LEVEL 139 MEQ/L (136-145); TOTAL PROTEIN 6.1 GM/DL (6.4-8.2)
[2017-02-08] MEDS: IPRATROPIUM 0.5MG/ALBUTEROL 2.5MG INH SOL UD 3ML (DUONEB)(J7620) NEB SCH ×3 (07:58→22:49)
[2017-02-08] MEDS: BUDESONIDE 0.5 MG/2 ML INHALATION SUSPENSION INH SCH ×2 (07:58→20:25)
[2017-02-08] MEDS: TIOTROPIUM INHALER/CAPSULE (SPIRIVA) INH SCH (07:58)
[2017-02-08] MEDS: FORMOTEROL FUMARATE 20 MCG/2 ML INHALATION SOLUTION (PERFOROMIST) INH SCH ×2 (07:58→20:25)
[2017-02-08 08:11] LABS: BANDS 1 % (< 11)
[2017-02-08 08:13] LABS: ANISOCYTOSIS 1+
[2017-02-08] MEDS: DIVALPROEX 500 MG TAB PO SCH ×2 (09:23→20:12)
[2017-02-08] MEDS: risperiDONE 2 MG TAB PO SCH ×2 (09:23→20:12)
[2017-02-08] MEDS: predniSONE 20 MG TAB PO SCH (09:23)
[2017-02-08] MEDS: PARoxetine 20 MG TAB PO SCH ×2 (09:24→20:12)
[2017-02-08] MEDS: ENOXAPARIN 40 MG/0.4 ML SYRINGE (J1650) SC SCH (09:24)
[2017-02-08] MEDS: amLODIPine 5 MG TAB PO SCH ×2 (09:24→20:13)
[2017-02-08] MEDS: clonazePAM 0.5 MG TAB PO SCH (09:24)
--- NOTE | 2017-02-08 09:57 | NOCOX ---
DATE OF STUDY: 02/07 into the morning of 02/08/2017. ORDERED BY: Dr. Luz Perales Study was initially started on room air and then just after 2200 hours 2 liters nasal cannula was added. Mean oxygen saturation for the entire study 90.8%. Lowest reliably recorded oxygen saturation 82%. Early on in the study, oxygen saturations remained at 82%. 2 liters nasal cannula were then added. Saturations naya to 95%. Some mild variability is noted throughout the study but for the remainder of the recorded study saturations remained above 88%. IMPRESSION: Abnormal nocturnal oxymetry on room air with adequate saturations on 2 liters nasal cannula flow. Please correlate clinically.
[2017-02-08] MEDS: cefTRIAXone SOD 1 GM in D5W MINI-BAG PLUS 50 ML IV SCH ×2 (11:45→22:03)
[2017-02-08 14:16] LABS: ORGANISM ID Not indicated. (.); SPECIMEN SOURCE Urine (.)
[2017-02-08] MEDS: DOXEPIN 25 MG CAP PO SCH (20:13)
[2017-02-09 02:00] VITALS: BP 122/72
[2017-02-09] MEDS: LevoFLOXacin 500 MG TABLET PO SCH (05:47)
[2017-02-09 06:00] VITALS: BP 137/88
[2017-02-09 07:06] LABS: MEAN CORPUSCULAR HEMOGLOBIN 30.8 pg (27.0-33.0); MEAN CORPUSCULAR HGB CONC 32.8 g/dl (32.0-36.5); MEAN CORPUSCULAR VOLUME 94.1 fl (80.0-96.0); PLATELET COUNT, AUTOMATED 462 k/mm3 (150-450); RED CELL DISTRIBUTION WIDTH 12.6 % (11.5-14.5); WHITE BLOOD COUNT 12.2 K/mm3 (4.0-10.0)
[2017-02-09 07:17] LABS: ALBUMIN 2.6 GM/DL (3.2-5.2); ALBUMIN/GLOBULIN RATIO 0.68 (1.00-1.93); ALKALINE PHOSPHATASE 121 U/L (45-117); ALT/SGPT 55 U/L (12-78); ANION GAP 10 MEQ/L (8-16); AST/SGOT 18 U/L (15-37); BILIRUBIN,TOTAL 0.2 MG/DL (0.2-1.0); BLOOD UREA NITROGEN 15 MG/DL (7-18); CARBON DIOXIDE LEVEL 27 MEQ/L (21-32); CHLORIDE LEVEL 102 MEQ/L (98-107); CREATININE FOR GFR 0.78 MG/DL (0.70-1.30); GLOMERULAR FILTRATION RATE > 60.0 (>56); GLUCOSE, FASTING 85 MG/DL (70-105); POTASSIUM SERUM 3.9 MEQ/L (3.5-5.1); SODIUM LEVEL 139 MEQ/L (136-145); TOTAL PROTEIN 6.4 GM/DL (6.4-8.2)
[2017-02-09 07:28] LABS: EOSINOPHILS 1 % (0-5)
[2017-02-09] MEDS: IPRATROPIUM 0.5MG/ALBUTEROL 2.5MG INH SOL UD 3ML (DUONEB)(J7620) NEB SCH (08:00)
[2017-02-09] MEDS: BUDESONIDE 0.5 MG/2 ML INHALATION SUSPENSION INH SCH (08:09)
[2017-02-09] MEDS: TIOTROPIUM INHALER/CAPSULE (SPIRIVA) INH SCH (08:09)
[2017-02-09] MEDS: FORMOTEROL FUMARATE 20 MCG/2 ML INHALATION SOLUTION (PERFOROMIST) INH SCH (08:09)
[2017-02-09] MEDS: DIVALPROEX 500 MG TAB PO SCH (08:32)
[2017-02-09] MEDS: PARoxetine 20 MG TAB PO SCH (08:32)
[2017-02-09] MEDS: predniSONE 20 MG TAB PO SCH (08:32)
[2017-02-09] MEDS: clonazePAM 0.5 MG TAB PO SCH (08:32)
[2017-02-09] MEDS: risperiDONE 2 MG TAB PO SCH (08:32)
[2017-02-09 08:33] VITALS: BP 137/88
[2017-02-09] MEDS: ENOXAPARIN 40 MG/0.4 ML SYRINGE (J1650) SC SCH (08:33)
[2017-02-09] MEDS: amLODIPine 5 MG TAB PO SCH (08:33)
[2017-02-09 10:00] VITALS: BP 144/79
[2017-02-09] MEDS: cefTRIAXone SOD 1 GM in D5W MINI-BAG PLUS 50 ML IV SCH (10:30)
[2017-02-09] MEDS ORDERED: AMLO10TA2 PO (13:26)
[2017-02-09] MEDS ORDERED: MEDR4PAK PO (13:26)
== END 2017-02-09 14:23 | disposition home health service (06) | DRG 190 ==
LOC: M ED 16:08 → M ED INP 20:41 → M PCU 22:13 → M MS5PR 02-04 15:43
PROVIDERS: ADMIT Internal Medicine; ATTEND Internal Medicine Nephrology
DX: J44.1 Chronic obstructive pulmonary disease with (acute) exacerbation (principal); J18.9 Pneumonia, unspecified organism; F17.200 Nicotine dependence, unspecified, uncomplicated; F31.9 Bipolar disorder, unspecified

== ENCOUNTER 2017-02-24 09:56 | Inpatient (IN) | payer MEDICARE ==
[~2017-02-24] VITALS: Ht 175.3 cm; Wt 83.8 kg
[~2017-02-24 09:56] MED LIST: AMLO10TA2 PO; AVEL400T PO; CLON0.5T PO; DEPA1TAB3 PO; DEPA500T2 PO; DOXE100CA PO; DOXE150C7 PO; ESTAZOLAM PO; MEDR4PAK PO; PAXI20TA3 PO; RISP2TAB3 PO; RISP4TAB33 PO; [UNRECOGNIZED DRUG - OTHER] PO
[2017-02-24] MEDS ORDERED: NS 1,000 ML IV ONE (10:45)
--- NOTE | 2017-02-24 11:08 | REP ---
CHEST X-RAY PA LATERAL: 02/24/2017. Comparison: Portable chest 02/03/2017, chest x-ray 02/03/2017, 11/10/[address] chest 02/03/2017, 11/18/2016. Clinical history: Dyspnea. Cough. Recent CT with diffuse bilateral reticulonodular and ground-glass infiltrates. Findings: Lungs are well inflated. There are coarsened interstitial markings throughout. There is peribronchial thickening bilaterally that may reflect bronchitis or reactive airway disease. In the right mid-lung zone towards the periphery there is a zone of patchy and linear atelectasis or infiltrate. No effusion or dense consolidation with air bronchograms. Heart not enlarged. The aorta is normal. Airway is intact. Maria Luisa are mildly prominent. There is less vascular congestion than on the previous examination. Patchy interstitial densities are improved overall. Bones intact. No compression deformity. No free air under the diaphragm. Impression: 1. Some underlying interstitial chronic changes with peribronchial thickening and streaky and patchy atelectasis or infiltrate right mid lung zone extending toward the periphery. There is no dense consolidation, effusion, cardiomegaly or pulmonary edema. Signed by Pablo Rutherford MD 02/24/2017 03:02 P
[2017-02-24 11:11] LABS: BASO % 0.3 % (0.0-1.0); EOS # 0.2 K/mm3 (0.0-0.50); EOS % 1.4 % (0.0-3.0); LARGE UNSTAINED CELL # 0.2 K/mm3 (0.0-0.4); LARGE UNSTAINED CELL % 1.6 % (0.0-4.0); LYMPH # 1.7 K/mm3 (1.5-4.5); LYMPH % 13.8 % (24.0-44.0); MEAN CORPUSCULAR HEMOGLOBIN 31.1 pg (27.0-33.0); MEAN CORPUSCULAR VOLUME 94.3 fl (80.0-96.0); MONO # 0.9 K/mm3 (0.0-0.8); MONO % 7.3 % (0.0-5.0); NEUTROPHILS # 9.2 K/mm3 (1.8-7.7); NEUTROPHILS % 75.6 % (36.0-66.0); PLATELET COUNT, AUTOMATED 264 k/mm3 (150-450); WHITE BLOOD COUNT 12.1 K/mm3 (4.0-10.0)
[2017-02-24] MEDS ORDERED: ALBUTEROL SULFATE 2.5 MG/0.5 ML INH NEB SOLN NEB ONE (11:30)
[2017-02-24] MEDS ORDERED: IPRATROPIUM 0.5MG/ALBUTEROL 2.5MG INH SOL UD 3ML (DUONEB)(J7620) NEB ONE (11:30)
[2017-02-24 11:39] LABS: ALBUMIN 3.3 GM/DL (3.2-5.2); ALBUMIN/GLOBULIN RATIO 1.06 (1.00-1.93); ALKALINE PHOSPHATASE 75 U/L (45-117); ALT/SGPT 22 U/L (12-78); ANION GAP 7 MEQ/L (8-16); AST/SGOT 11 U/L (15-37); BILIRUBIN,DIRECT < 0.1 MG/DL (0.0-0.2); BILIRUBIN,TOTAL 0.2 MG/DL (0.2-1.0); BLOOD UREA NITROGEN 7 MG/DL (7-18); CALCIUM LEVEL 8.6 MG/DL (8.5-10.1); CARBON DIOXIDE LEVEL 30 MEQ/L (21-32); CHLORIDE LEVEL 99 MEQ/L (98-107); CREATININE FOR GFR 0.73 MG/DL (0.70-1.30); GLOMERULAR FILTRATION RATE > 60.0 (>56); GLUCOSE, FASTING 95 MG/DL (70-105); POTASSIUM SERUM 4.1 MEQ/L (3.5-5.1); SODIUM LEVEL 136 MEQ/L (136-145); TOTAL PROTEIN 6.4 GM/DL (6.4-8.2)
[2017-02-24] MEDS ORDERED: CEFEPIME HCL 2 GM in D5W MINI-BAG PLUS 50 ML IV ONE (12:30)
[2017-02-24] MEDS ORDERED: LevoFLOXacin IV 750 MG in APPROPRIATE DILUENT 1 EA IV ONE (12:30)
[2017-02-24] MEDS ORDERED: AMLO10TA2 PO (12:57)
[2017-02-24] MEDS ORDERED: ACETAMINOPHEN TAB 650MG DOSE (2X325MG) PO PRN (13:45)
--- NOTE | 2017-02-24 13:50 | HPEPDOC ---
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 Pt presents today with 1 day h/o SOB, non productive dry cough. Was advised to come to ED as per HHN related to SOB and elevated BP. Reports feeling weak. No fevers/chills. As per ED record, O2 tank was noted to be empty on arrival to ED. Pt states he does feel somewhat better on O2 in ED. Denies any ROWAN, CP, palpitations, abdominal pain, N/V/D or changes in bowel or bladder habits. Upon presentation to the hospital the patient was found to have SOB, thus the hospitalist team was consulted. PMHx: COPD H/O pneumonia Tobacco use- states quit 01/27 Bipolar disorder anxiety depression insomnia HTN PSHX: hernia repair left elbow surgery left shoulder surgery appendectomy SOCHX: Resides in: [facility] Marital Status: single Kids: none Employment: unemployed Tobacco use: quit 01/27 ETOH: denies Illicit Drugs: Denies Recent travel: denies Advanced directives: none FAMHX: Mother: Alive, well Father: Alive, [place] Siblings: 2 sisters Alive, well Children: none ROS: As noted in HPI, otherwise 11pt ROS of systems reviewed and remarkable for lightheadedness and dizziness intermittently. No syncopal episodes. Sometimes has ear pressure. No vertigo sx. PE: GEN: 57yoM, appears stated age. No acute distress. Alert and oriented x 3. Pleasant, interactive. HEENT: Normocephalic, atraumatic. Pupils are equal, round, and reactive to light. Extraocular movements are intact. No nystagmus appreciated. Sclera are nonicteric. Conjunctiva without injection. Nose midline. Nasal turbinates without bogginess. EACs both patent BL. TMs both visualized and hernandez with good cone of light, no bulging or erythema. No facial asymmetry. moist mucous membranes. Dentition poor. Pharynx pink and moist. Neck supple, trachea midline. No lymphadenopathy or thyromegaly appreciated. CHEST: Regular rate and rhythm, +S1, +S2 LUNGS: Decreased BS bilaterally. Exp wheezes noted B/L lung myles, No rales, or rhonchi. No accessory muscle use. ABD: Round, soft, non-tender, non-distended. +Bowel sounds throughout. No rebound or guarding. No costovertebral angle tenderness. EXT: 1 mm LE extremity edema appreciated. SKIN: Harvest, dry, warm. Capillary refill <2sec. No rashes. NEURO: Alert and oriented x 3. Cranial nerves III-XII are intact. No focal deficits appreciated. CXR: 1. Some underlying interstitial chronic changes with peribronchial thickening and streaky and patchy atelectasis or infiltrate right mid lung zone extending toward the periphery. There is no dense consolidation, effusion, cardiomegaly or pulmonary edema. EKG: SR, Poss LAE, RBBB, 91bpm. BLOOD CULTURES: x 2 pending. LA 1.6 A&P: 57yoM with a past medical history significant for bipolar disorder, COPD, recently discharged on home O2 02/09/17 after being treated for COPD exacerbation and pneumonia. Pt presents today with 1 day h/o SOB, non productive dry cough. Was advised to come to ED as per HHN related to SOB and elevated BP. Reports feeling weak. No fevers/chills. As per ED record, O2 tank was noted to be empty on arrival to ED. The patient will be admitted to /S for at least [address] Castaneda's service. Pt is discussed with Dr Lockwood. 1. HCAP. Pt was treated with Quinolone last admission. Will treat with IV Meropenem. BC x 2 pending. SC pending. Influenza screen pending. Daily labs. 2. COPD exacerbation. O2, nebs, IV Solumedrol 40 mg IV Q6. 3. HTN. Norvasc 10 mg daily with hold parameters. Received x 1 liter IVF in ED. No further IVF ordered at this time. Pt does have 1mm LE edema. Of note, Norvasc was added last admission which could also contribute to LE edema. 4. Bipolar disorder. Cont outpt regimen. Cont Depakote and add Depakote level to labs. 5. Insomnia. Doxepin at HS. DVT prophylaxis. The patient is a Full code. Vital Signs Vital Signs Date Time Temp Pulse Resp B/P Pulse Ox O2 Delivery O2 Flow Rate FiO2 02/24/17 10:55 Room Air 02/24/17 09:57 98.8 95 20 156/77 92 2 Laboratory Data Labs 24H Laboratory Tests 2 02/24/17 10:42: Aspartate Amino Transf (AST/SGOT) 11L, Alanine Aminotransferase (ALT/SGPT) 22, Alkaline Phosphatase 75, Total Bilirubin 0.2, Direct Bilirubin < 0.1, Albumin 3.3, Albumin/Globulin Ratio 1.06, Anion Gap 7L, White Blood Count 12.1H, Red Blood Count 4.10L, Hemoglobin 12.8L, Hematocrit 38.6L, Mean Corpuscular Volume 94.3, Mean Corpuscular Hemoglobin 31.1, Mean Corpuscular Hemoglobin Concent 33.0 , Red Cell Distribution Width 13.0, Platelet Count 264, Neutrophils (%) (Auto) 75.6H, Lymphocytes (%) (Auto) 13.8L, Monocytes (%) (Auto) 7.3H, Eosinophils (%) (Auto) 1.4, Basophils (%) (Auto) 0.3, Neutrophils # (Auto) 9.2H, Lymphocytes # ( Auto) 1.7, Monocytes # (Auto) 0.9H, Eosinophils # (Auto) 0.2, Basophils # (Auto ) 0.0, C-Reactive Protein, Quantitative 1.61H, Calcium Level 8.6, Glomerular Filtration Rate > 60.0, Lactic Acid Level 1.6, Large Unclassified Cells # 0.2, Large Unclassified Cells % 1.6, Total Protein 6.4 CBC/BMP Laboratory Tests 02/24/17 10:42 Red Blood Count 4.10 L, Mean Corpuscular Volume 94.3, Mean Corpuscular Hemoglobin 31.1, Mean Corpuscular Hemoglobin Concent 33.0, Red Cell Distribution Width 13.0, Neutrophils (%) (Auto) 75.6 H, Lymphocytes (%) (Auto) 13.8 L, Monocytes (%) (Auto) 7.3 H, Eosinophils (%) (Auto) 1.4, Basophils (%) ( Auto) 0.3, Neutrophils # (Auto) 9.2 H, Lymphocytes # (Auto) 1.7, Monocytes # ( Auto) 0.9 H, Eosinophils # (Auto) 0.2, Basophils # (Auto) 0.0 Microbiology Microbiology 02/24/17 Blood Culture, Received Pending 02/24/17 Blood Culture, Received Pending Home Medications Scheduled ([Estazolam]) 2 MG PO QHS (Risperidone) 2 Mg Tab 2 MG PO BID Amlodipine Besylate (Amlodipine Besylate) 10 Mg Tab 10 MG PO DAILY Clonazepam (Clonazepam) 0.5 Mg Tab 0.5 MG PO DAILY Divalproex Sodium (Depakote ER) 500 Mg Tab 500 MG PO QAM Divalproex Sodium (Depakote ER) 500 Mg Tab 1,500 MG PO QHS Doxepin HCl (Doxepin HCl) 100 Mg Cap 100 MG PO QHS TAKES WITH 150MG =250MG TOTAL Doxepin Hcl (Doxepin HCl) 150 Mg Cap 150 MG PO QHS TAKES WITH 100MG =250MG TOTAL Paroxetine Hydrochloride (Paxil) 20 Mg Tab 20 MG PO BID Allergies Coded Allergies: Penicillins (Verified Allergy, Intermediate, hives, 02/24/17) Vicky Walls Feb 24, 2017 13:50
[2017-02-24] MEDS ORDERED: methylPREDNISolone INJ 125 MG/2 ML VIAL (J2930) IV SCH (14:00)
[2017-02-24 15:20] VITALS: BP 152/81
[2017-02-24] MEDS: methylPREDNISolone INJ 40 MG/1 ML VIAL (J2920) IV SCH ×2 (16:36→20:12)
[2017-02-24] MEDS: MEROPENEM INJ 1 GM in D5W MINI-BAG PLUS 100 ML IV SCH ×2 (16:37→23:13)
[2017-02-24] MEDS: ENOXAPARIN 40 MG/0.4 ML SYRINGE (J1650) SC SCH (16:45)
[2017-02-24] MEDS ORDERED: CEFEPIME HCL 2 GM in D5W MINI-BAG PLUS 50 ML IV SCH (20:00)
[2017-02-24] MEDS: risperiDONE 2 MG TAB PO SCH (20:12)
[2017-02-24] MEDS: DIVALPROEX 500MG *ER* TAB PO SCH (20:12)
[2017-02-24] MEDS: PARoxetine 20 MG TAB PO SCH (20:12)
[2017-02-24] MEDS: DOXEPIN 25 MG CAP PO SCH (20:12)
[2017-02-24 22:00] VITALS: BP 163/79
[2017-02-25] MEDS: methylPREDNISolone INJ 40 MG/1 ML VIAL (J2920) IV SCH ×4 (02:47→21:11)
[2017-02-25 06:00] VITALS: BP 158/84
[2017-02-25 06:29] LABS: BASO % 0.1 % (0.0-1.0); EOS % 0.3 % (0.0-3.0); LARGE UNSTAINED CELL # 0.1 K/mm3 (0.0-0.4); LARGE UNSTAINED CELL % 0.7 % (0.0-4.0); LYMPH # 0.9 K/mm3 (1.5-4.5); LYMPH % 6.8 % (24.0-44.0); MEAN CORPUSCULAR HEMOGLOBIN 30.2 pg (27.0-33.0); MEAN CORPUSCULAR VOLUME 94.3 fl (80.0-96.0); MONO # 0.4 K/mm3 (0.0-0.8); NEUTROPHILS % 89.1 % (36.0-66.0); PLATELET COUNT, AUTOMATED 276 k/mm3 (150-450); RED CELL DISTRIBUTION WIDTH 13.2 % (11.5-14.5); WHITE BLOOD COUNT 12.4 K/mm3 (4.0-10.0)
[2017-02-25 06:52] LABS: ALBUMIN 3.1 GM/DL (3.2-5.2); ALBUMIN/GLOBULIN RATIO 0.79 (1.00-1.93); ALKALINE PHOSPHATASE 77 U/L (45-117); ALT/SGPT 21 U/L (12-78); ANION GAP 10 MEQ/L (8-16); AST/SGOT 9 U/L (15-37); BILIRUBIN,TOTAL 0.2 MG/DL (0.2-1.0); BLOOD UREA NITROGEN 10 MG/DL (7-18); CALCIUM LEVEL 9.2 MG/DL (8.5-10.1); CARBON DIOXIDE LEVEL 25 MEQ/L (21-32); CHLORIDE LEVEL 103 MEQ/L (98-107); CREATININE FOR GFR 0.82 MG/DL (0.70-1.30); GLOMERULAR FILTRATION RATE > 60.0 (>56); GLUCOSE, FASTING 142 MG/DL (70-105); POTASSIUM SERUM 4.3 MEQ/L (3.5-5.1); SODIUM LEVEL 138 MEQ/L (136-145)
[2017-02-25] MEDS: clonazePAM 0.5 MG TAB PO SCH (08:01)
[2017-02-25] MEDS: amLODIPine 10 MG TAB PO SCH (08:01)
[2017-02-25] MEDS: MEROPENEM INJ 1 GM in D5W MINI-BAG PLUS 100 ML IV SCH ×2 (08:01→15:19)
[2017-02-25] MEDS: risperiDONE 2 MG TAB PO SCH ×2 (08:01→21:11)
[2017-02-25] MEDS: PARoxetine 20 MG TAB PO SCH ×2 (08:01→21:11)
[2017-02-25] MEDS: DIVALPROEX 500MG *ER* TAB PO SCH ×2 (08:01→21:11)
[2017-02-25] MEDS: ENOXAPARIN 40 MG/0.4 ML SYRINGE (J1650) SC SCH (08:01)
[2017-02-25] MEDS ORDERED: LevoFLOXacin IV 750 MG in APPROPRIATE DILUENT 1 EA IV SCH (13:00)
[2017-02-25 14:00] VITALS: BP 150/75
[2017-02-25] MEDS: DOXEPIN 25 MG CAP PO SCH (21:11)
[2017-02-25 22:00] VITALS: BP 135/61
[2017-02-26] MEDS: MEROPENEM INJ 1 GM in D5W MINI-BAG PLUS 100 ML IV SCH ×4 (00:15→23:40)
[2017-02-26] MEDS: methylPREDNISolone INJ 40 MG/1 ML VIAL (J2920) IV SCH ×2 (02:51→08:20)
[2017-02-26 06:35] LABS: BASO % 0.1 % (0.0-1.0); EOS # 0.1 K/mm3 (0.0-0.50); EOS % 0.3 % (0.0-3.0); LARGE UNSTAINED CELL # 0.1 K/mm3 (0.0-0.4); LARGE UNSTAINED CELL % 0.6 % (0.0-4.0); LYMPH # 1.3 K/mm3 (1.5-4.5); MEAN CORPUSCULAR HEMOGLOBIN 30.9 pg (27.0-33.0); MEAN CORPUSCULAR HGB CONC 33.2 g/dl (32.0-36.5); MEAN CORPUSCULAR VOLUME 93.2 fl (80.0-96.0); NEUTROPHILS # 17.4 K/mm3 (1.8-7.7); PLATELET COUNT, AUTOMATED 280 k/mm3 (150-450); RED CELL DISTRIBUTION WIDTH 13.3 % (11.5-14.5); WHITE BLOOD COUNT 19.8 K/mm3 (4.0-10.0)
[2017-02-26 06:52] LABS: ALBUMIN/GLOBULIN RATIO 0.83 (1.00-1.93); ALKALINE PHOSPHATASE 68 U/L (45-117); ALT/SGPT 19 U/L (12-78); ANION GAP 9 MEQ/L (8-16); AST/SGOT 7 U/L (15-37); BILIRUBIN,TOTAL 0.1 MG/DL (0.2-1.0); BLOOD UREA NITROGEN 14 MG/DL (7-18); CARBON DIOXIDE LEVEL 26 MEQ/L (21-32); CHLORIDE LEVEL 105 MEQ/L (98-107); CREATININE FOR GFR 0.76 MG/DL (0.70-1.30); GLOMERULAR FILTRATION RATE > 60.0 (>56); GLUCOSE, FASTING 132 MG/DL (70-105); POTASSIUM SERUM 4.2 MEQ/L (3.5-5.1); SODIUM LEVEL 140 MEQ/L (136-145); TOTAL PROTEIN 6.6 GM/DL (6.4-8.2)
[2017-02-26 07:50] VITALS: BP 148/68
[2017-02-26] MEDS: clonazePAM 0.5 MG TAB PO SCH (08:20)
[2017-02-26] MEDS: ENOXAPARIN 40 MG/0.4 ML SYRINGE (J1650) SC SCH (08:20)
[2017-02-26] MEDS: PARoxetine 20 MG TAB PO SCH ×2 (08:20→20:41)
[2017-02-26] MEDS: amLODIPine 10 MG TAB PO SCH (08:20)
[2017-02-26] MEDS: DIVALPROEX 500MG *ER* TAB PO SCH ×2 (08:21→20:41)
[2017-02-26] MEDS: risperiDONE 2 MG TAB PO SCH ×2 (08:21→20:41)
--- NOTE | 2017-02-26 08:57 | ECGEPIP ---
Stationary ECG Study [facility] - ED Test Date: 2017-02-24 Pat Name: DILIP MODI Department: Room: - Gender: M Locomotive Engineer: JACOB : 1960 Requested By: ULISSES Finley Order Number: [id number] Reading MD: Mony Cavanaugh Measurements Intervals [place] Rate: 91 P: 58 WI: 172 QRS: 43 QRSD: 126 T: 49 QT: 375 QTc: 464 Interpretive Statements SINUS RHYTHM POSSIBLE LEFT ATRIAL ENLARGEMENT RIGHT BUNDLE BRANCH BLOCK NONSPECIFIC ST T WAVE CHANGES CW 02/03/[address] T WAVE CHANGES Electronically Signed On 02-26-2017 8:57:48 EDT by Mony Cavanaugh
--- NOTE | 2017-02-26 12:21 | IPN ---
DATE OF SERVICE: 02/25/2017 A 57-year-old gentleman admitted through the night for shortness of breath. He is resting comfortably. No complaints. OBJECTIVE: Temperature is 96.9, pulse 100, respiratory rate 18, blood pressure (BP) 158/84, SpO2 93% on room air. HEENT: Unremarkable. Lungs: Extended expiratory wheeze. Heart: Regular rate and rhythm. LABORATORY DATA: White count 12.4, hemoglobin 13, platelets 276. Sodium 138, potassium 4.3, chloride 103, bicarbonate 25, anion gap 10, BUN 10, creatinine is 0.82. IMPRESSION: 1. Hospital-acquired pneumonia. 2. Chronic obstructive pulmonary disease (COPD). 3. Tobacco use. 4. Bipolar disorder with anxiety. 5. Depression. 6. Insomnia. 7. Hypertension. PLAN: The patient will continue with oxygen supplementation. Continue with intravenous (IV) Solu-Medrol, DuoNebs, and IV meropenem. Blood cultures are pending. Sputum, will try to obtain a sputum culture. Influenza A and B are negative. Deep venous thrombosis (DVT) prophylaxis with Lovenox. DISPOSITION: Anticipate he will be here greater than two midnights.
--- NOTE | 2017-02-26 12:29 | IPN ---
DATE OF SERVICE: 02/26/2017 A 57-year-old gentleman seen at bedside. He is still quite short of breath with ambulating. He denies chest pain. No nausea or vomiting. OBJECTIVE: Temperature is 99.1, pulse 102, respiratory rate is 18, blood pressure (BP) 148/68, SpO2 is 94% on 2 liters. General: The patient appears to be in no acute distress. He is able to speak in complete sentences. HEENT: Unremarkable. Lungs: Diminished bibasilar breath sounds. Heart: Regular rate and rhythm. Abdomen: Soft. Extremities: No edema. No calf tenderness. LABORATORY DATA: White count 19.8, hemoglobin 12.1, and platelets 280. Sodium 140, potassium 4.2, chloride 105, bicarbonate 26, anion gap 9, BUN is 14, creatinine 0.76, glucose 132, AST is 7, ALT is 19, alkaline phosphatase 8. ASSESSMENT AND PLAN: 1. Hospital-acquired pneumonia. Continue on meropenem as outlined. Try to obtain sputum cultures. Will add on acapella. Continue with DuoNebs. 2. Chronic obstructive pulmonary disease (COPD) as outlined. Will give him DuoNebs, Solu-Medrol. 3. Tobacco use. He quit in January 2017. Encouraged him to continue to avoid tobacco products. 4. Bipolar disorder and anxiety appears to be stable. 5. Depression. No suicidal ideation. 6. Hypertension. Will continue to monitor. He does have some tachycardia. However, this is most likely related to his underlying disease process and work of breathing. 7. Deep venous thrombosis (DVT) prophylaxis. Subcutaneous Lovenox. DISPOSITION: The patient will still be here I would anticipate a few more days. Again, will add on the acapella. I am going to increase his Solu-Medrol dose, and I do suspect his leukocytosis is likely steroid demargination since he remains afebrile and does not appear to be acutely toxic or septic.
[2017-02-26] MEDS: methylPREDNISolone INJ 125 MG/2 ML VIAL (J2930) IV SCH ×2 (15:15→20:43)
[2017-02-26] MEDS: DOXEPIN 25 MG CAP PO SCH (20:41)
[2017-02-26 22:00] VITALS: BP 145/73
[2017-02-27] MEDS: methylPREDNISolone INJ 125 MG/2 ML VIAL (J2930) IV SCH ×4 (02:18→21:16)
[2017-02-27 07:20] LABS: BASO % 0.1 % (0.0-1.0); EOS % 0.1 % (0.0-3.0); LARGE UNSTAINED CELL # 0.1 K/mm3 (0.0-0.4); LARGE UNSTAINED CELL % 0.7 % (0.0-4.0); LYMPH # 1.5 K/mm3 (1.5-4.5); LYMPH % 7.5 % (24.0-44.0); MEAN CORPUSCULAR HEMOGLOBIN 31.3 pg (27.0-33.0); MEAN CORPUSCULAR HGB CONC 33.5 g/dl (32.0-36.5); MEAN CORPUSCULAR VOLUME 93.3 fl (80.0-96.0); MONO # 1.1 K/mm3 (0.0-0.8); MONO % 5.6 % (0.0-5.0); NEUTROPHILS # 17.5 K/mm3 (1.8-7.7); PLATELET COUNT, AUTOMATED 276 k/mm3 (150-450); RED CELL DISTRIBUTION WIDTH 13.2 % (11.5-14.5); WHITE BLOOD COUNT 20.3 K/mm3 (4.0-10.0)
[2017-02-27 08:07] LABS: ALBUMIN 3.1 GM/DL (3.2-5.2); ALBUMIN/GLOBULIN RATIO 0.86 (1.00-1.93); ALKALINE PHOSPHATASE 64 U/L (45-117); ALT/SGPT 32 U/L (12-78); ANION GAP 8 MEQ/L (8-16); AST/SGOT 23 U/L (15-37); BILIRUBIN,TOTAL 0.2 MG/DL (0.2-1.0); BLOOD UREA NITROGEN 14 MG/DL (7-18); CALCIUM LEVEL 9.1 MG/DL (8.5-10.1); CARBON DIOXIDE LEVEL 29 MEQ/L (21-32); CHLORIDE LEVEL 103 MEQ/L (98-107); CREATININE FOR GFR 0.76 MG/DL (0.70-1.30); GLOMERULAR FILTRATION RATE > 60.0 (>56); GLUCOSE, FASTING 110 MG/DL (70-105); POTASSIUM SERUM 3.9 MEQ/L (3.5-5.1); SODIUM LEVEL 140 MEQ/L (136-145); TOTAL PROTEIN 6.7 GM/DL (6.4-8.2)
[2017-02-27] MEDS: MEROPENEM INJ 1 GM in D5W MINI-BAG PLUS 100 ML IV SCH ×3 (08:37→23:26)
[2017-02-27] MEDS: PARoxetine 20 MG TAB PO SCH ×2 (08:37→21:19)
[2017-02-27] MEDS: DIVALPROEX 500MG *ER* TAB PO SCH ×2 (08:37→21:20)
[2017-02-27] MEDS: clonazePAM 0.5 MG TAB PO SCH (08:37)
[2017-02-27] MEDS: ENOXAPARIN 40 MG/0.4 ML SYRINGE (J1650) SC SCH (08:37)
[2017-02-27] MEDS: amLODIPine 10 MG TAB PO SCH (08:38)
[2017-02-27] MEDS: risperiDONE 2 MG TAB PO SCH ×2 (08:47→21:19)
[2017-02-27 14:00] VITALS: BP 160/76
--- NOTE | 2017-02-27 16:48 | IPNPDOC ---
Date Seen The patient was seen on 02/27/17. Progress Note Hospitalist Progress Note Subjective: Patient is still significantly short of breath Objective: Physical Exam: Vitals: Vital Sign - Last 24 Hours 02/26/17 02/26/17 02/27/17 02/27/17 20:00 22:00 08:38 09:00 Temp 97.8 Pulse 94 92 Resp 18 B/P 145/73 142/70 Pulse Ox 94 O2 Delivery Nasal Cannula Nasal Cannula O2 Flow Rate 2.0 2.0 02/27/17 14:00 Temp 98.8 Pulse 104 Resp 18 B/P 160/76 Pulse Ox 92 O2 Delivery Room Air General: Awake, alert, no acute distress but mildly short of breath HEENT: Normocephalic, atraumatic, extraocular movements intact CV: Regular rate and rhythm, no murmurs rubs or gallops Lungs: Diffuse rhonchi with expiratory wheezing in all myles Abd: Soft, nontender, nondistended Extremities: No edema of the bilateral lower extremities Neuro: Alert And oriented 3, normal speech Psych: Normal mood and affect Labs and Imaging: Laboratory Tests 02/27/17 06:51 Calcium Level 9.1, Aspartate Amino Transf (AST/SGOT) 23, Alanine Aminotransferase (ALT/SGPT) 32, Alkaline Phosphatase 64, Total Bilirubin 0.2 #, Total Protein 6.7, Albumin 3.1 L, Red Blood Count 4.15 L, Mean Corpuscular Volume 93.3, Mean Corpuscular Hemoglobin 31.3, Mean Corpuscular Hemoglobin Concent 33.5, Red Cell Distribution Width 13.2, Neutrophils (%) (Auto) 86.0 H, Lymphocytes (%) (Auto) 7.5 L, Monocytes (%) (Auto) 5.6 H, Eosinophils (%) (Auto ) 0.1, Basophils (%) (Auto) 0.1, Neutrophils # (Auto) 17.5 H, Lymphocytes # ( Auto) 1.5, Monocytes # (Auto) 1.1 H, Eosinophils # (Auto) 0.0, Basophils # (Auto ) 0.0 Assessment and Plan: 57 year old male with bipolar disorder, COPD, insomnia, hypertension, recent admission for COPD exacerbation and pneumonia who presented with increasing shortness of breath and cough. He has been admitted with a likely HCAP, as well as COPD exacerbation. 1. HCAP: The patient is currently afebrile. Initial WBC was 12.1. The WBC has increased since admission, however, I suspect that this is secondary to demarginalization from his steroids. Chest x-ray did show a possible infiltrate in the right midlung. Continue meropenem. Flu screen and blood cultures are negative. 2. COPD exacerbation: The patient is currently on his home O2 2 L, however, he has significant rhonchi and wheezing. We will continue Solu-Medrol at the current doses. We will also start the patient on scheduled and as needed DuoNeb' s. Given the patient's multiple recent admissions, I also believe he would benefit from starting Spiriva. 3. Bipolar disorder/insomnia continue home Paxil, doxepin, Risperdal, Depakote, Klonopin 4. Hypertension: Continue home Norvasc. DVT prophylaxis: Lovenox Dispo: pending improvement in respiratory status and ability to transition to oral steroids and oral antibiotics VS, I&O, [facility] Vital Signs/I&O Vital Signs Date Time Temp Pulse Resp B/P Pulse Ox O2 Delivery O2 Flow Rate FiO2 02/27/17 14:00 98.8 104 18 160/76 92 Room Air 02/27/17 09:00 2.0 I&O- Last 24 Hours up to 6 AM 02/27/17 05:59 Intake Total 2860 ml Output Total 2775 ml Balance 85 ml Laboratory Data 24H LABS Laboratory Tests 2 02/27/17 06:51: Blood Urea Nitrogen 14, Creatinine 0.76, Sodium Level 140, Potassium Level 3.9, Chloride Level 103, Carbon Dioxide Level 29, Calcium Level 9.1, Aspartate Amino Transf (AST/SGOT) 23, Alanine Aminotransferase (ALT/SGPT) 32, Alkaline Phosphatase 64, Total Bilirubin 0.2#, Total Protein 6.7, Albumin 3.1L, Albumin/ Globulin Ratio 0.86L, Anion Gap 8, White Blood Count 20.3H, Red Blood Count 4.15L, Hemoglobin 13.0L, Hematocrit 38.7L, Mean Corpuscular Volume 93.3, Mean Corpuscular Hemoglobin 31.3, Mean Corpuscular Hemoglobin Concent 33.5, Red Cell Distribution Width 13.2, Platelet Count 276, Neutrophils (%) (Auto) 86.0H, Lymphocytes (%) (Auto) 7.5L, Monocytes (%) (Auto) 5.6H, Eosinophils (%) (Auto) 0.1, Basophils (%) (Auto) 0.1, Neutrophils # (Auto) 17.5H, Lymphocytes # (Auto) 1.5, Monocytes # (Auto) 1.1H, Eosinophils # (Auto) 0.0, Basophils # (Auto) 0.0, Glomerular Filtration Rate > 60.0, Large Unclassified Cells # 0.1, Large Unclassified Cells % 0.7 CBC/BMP Laboratory Tests 02/27/17 06:51 Calcium Level 9.1, Aspartate Amino Transf (AST/SGOT) 23, Alanine Aminotransferase (ALT/SGPT) 32, Alkaline Phosphatase 64, Total Bilirubin 0.2 #, Total Protein 6.7, Albumin 3.1 L, Red Blood Count 4.15 L, Mean Corpuscular Volume 93.3, Mean Corpuscular Hemoglobin 31.3, Mean Corpuscular Hemoglobin Concent 33.5, Red Cell Distribution Width 13.2, Neutrophils (%) (Auto) 86.0 H, Lymphocytes (%) (Auto) 7.5 L, Monocytes (%) (Auto) 5.6 H, Eosinophils (%) (Auto ) 0.1, Basophils (%) (Auto) 0.1, Neutrophils # (Auto) 17.5 H, Lymphocytes # ( Auto) 1.5, Monocytes # (Auto) 1.1 H, Eosinophils # (Auto) 0.0, Basophils # (Auto ) 0.0 Microbiology Microbiology 02/24/17 Blood Culture - Preliminary, Resulted No Growth after 72 hours. All specime... 02/24/17 Blood Culture - Preliminary, Resulted No Growth after 72 hours. All specime... 02/24/17 Influenza Virus Type A Antigen - Final, Complete 02/24/17 Influenza Virus Type B Antigen - Final, Complete ANT HOWELL Feb 27, 2017 16:47
[2017-02-27] MEDS: IPRATROPIUM 0.5MG/ALBUTEROL 2.5MG INH SOL UD 3ML (DUONEB)(J7620) NEB SCH (19:19)
[2017-02-27] MEDS: DOXEPIN 25 MG CAP PO SCH (21:20)
[2017-02-27 22:00] VITALS: BP 141/74
[2017-02-28] MEDS: IPRATROPIUM 0.5MG/ALBUTEROL 2.5MG INH SOL UD 3ML (DUONEB)(J7620) NEB SCH ×4 (01:54→19:58)
[2017-02-28] MEDS: methylPREDNISolone INJ 125 MG/2 ML VIAL (J2930) IV SCH ×4 (02:38→23:06)
[2017-02-28 06:00] VITALS: BP 145/68
[2017-02-28 06:44] LABS: BASO % 0.1 % (0.0-1.0); EOS % 0.1 % (0.0-3.0); LARGE UNSTAINED CELL # 0.2 K/mm3 (0.0-0.4); LYMPH # 1.8 K/mm3 (1.5-4.5); LYMPH % 8.4 % (24.0-44.0); MEAN CORPUSCULAR HEMOGLOBIN 31.2 pg (27.0-33.0); MEAN CORPUSCULAR HGB CONC 33.5 g/dl (32.0-36.5); MEAN CORPUSCULAR VOLUME 93.1 fl (80.0-96.0); MONO # 1.5 K/mm3 (0.0-0.8); MONO % 7.1 % (0.0-5.0); NEUTROPHILS % 83.2 % (36.0-66.0); PLATELET COUNT, AUTOMATED 279 k/mm3 (150-450); RED CELL DISTRIBUTION WIDTH 13.1 % (11.5-14.5); WHITE BLOOD COUNT 21.6 K/mm3 (4.0-10.0)
[2017-02-28 07:07] LABS: ALBUMIN/GLOBULIN RATIO 0.88 (1.00-1.93); ALKALINE PHOSPHATASE 67 U/L (45-117); ALT/SGPT 95 U/L (12-78); ANION GAP 11 MEQ/L (8-16); AST/SGOT 53 U/L (15-37); BILIRUBIN,TOTAL 0.2 MG/DL (0.2-1.0); BLOOD UREA NITROGEN 14 MG/DL (7-18); CALCIUM LEVEL 8.6 MG/DL (8.5-10.1); CARBON DIOXIDE LEVEL 27 MEQ/L (21-32); CHLORIDE LEVEL 103 MEQ/L (98-107); CREATININE FOR GFR 0.84 MG/DL (0.70-1.30); GLOMERULAR FILTRATION RATE > 60.0 (>56); GLUCOSE, FASTING 116 MG/DL (70-105); MAGNESIUM LEVEL 2.4 MG/DL (1.8-2.4); POTASSIUM SERUM 4.1 MEQ/L (3.5-5.1); SODIUM LEVEL 141 MEQ/L (136-145); TOTAL PROTEIN 6.4 GM/DL (6.4-8.2)
[2017-02-28] MEDS: TIOTROPIUM INHALER/CAPSULE (SPIRIVA) INH SCH (08:04)
[2017-02-28] MEDS: clonazePAM 0.5 MG TAB PO SCH (08:33)
[2017-02-28] MEDS: MEROPENEM INJ 1 GM in D5W MINI-BAG PLUS 100 ML IV SCH ×3 (08:33→23:06)
[2017-02-28] MEDS: ENOXAPARIN 40 MG/0.4 ML SYRINGE (J1650) SC SCH (08:34)
[2017-02-28] MEDS: DIVALPROEX 500MG *ER* TAB PO SCH ×2 (08:34→20:18)
[2017-02-28] MEDS: risperiDONE 2 MG TAB PO SCH ×2 (08:34→20:18)
[2017-02-28] MEDS: PARoxetine 20 MG TAB PO SCH ×2 (08:34→20:18)
[2017-02-28] MEDS: amLODIPine 10 MG TAB PO SCH (08:35)
[2017-02-28 14:00] VITALS: BP 135/71
--- NOTE | 2017-02-28 17:39 | IPNPDOC ---
Date Seen The patient was seen on 02/28/17. Progress Note Hospitalist Progress Note Subjective: Patient feels that his breathing is a bit better today Objective: Physical Exam: Vitals: Vital Sign - Last 24 Hours 02/27/17 02/27/17 02/27/17 02/28/17 19:20 20:30 22:00 01:54 Temp 97.4 Pulse 97 Resp 20 B/P 141/74 Pulse Ox 92 O2 Delivery Nasal Cannula Nasal Cannula Nasal Cannula Nasal Cannula O2 Flow Rate 2.0 2.0 2.0 2.0 02/28/17 02/28/17 02/28/17 02/28/17 06:00 08:35 08:35 14:00 Temp 98.6 98.9 Pulse 99 99 108 Resp 17 20 B/P 145/68 169/83 135/71 Pulse Ox 92 93 O2 Delivery Nasal Cannula Nasal Cannula Nasal Cannula O2 Flow Rate 2.0 2.0 2.0 General: Awake, alert, no acute distress HEENT: Normocephalic, atraumatic, extraocular movements intact CV: Regular rate and rhythm, no murmurs rubs or gallops Lungs: moving very good air, hardly any wheeze Abd: Soft, nontender, nondistended Extremities: No edema of the bilateral lower extremities Neuro: Alert And oriented 3, normal speech Psych: Normal mood and affect Labs and Imaging: Laboratory Tests 02/28/17 06:10 Calcium Level 8.6, Aspartate Amino Transf (AST/SGOT) 53 H, Alanine Aminotransferase (ALT/SGPT) 95 H, Alkaline Phosphatase 67, Total Bilirubin 0.2, Total Protein 6.4, Albumin 3.0 L, Red Blood Count 4.19 L, Mean Corpuscular Volume 93.1, Mean Corpuscular Hemoglobin 31.2, Mean Corpuscular Hemoglobin Concent 33.5, Red Cell Distribution Width 13.1, Neutrophils (%) (Auto) 83.2 H, Lymphocytes (%) (Auto) 8.4 L, Monocytes (%) (Auto) 7.1 H, Eosinophils (%) (Auto ) 0.1, Basophils (%) (Auto) 0.1, Neutrophils # (Auto) 18.0 H, Lymphocytes # ( Auto) 1.8, Monocytes # (Auto) 1.5 H, Eosinophils # (Auto) 0.0, Basophils # (Auto ) 0.0 Assessment and Plan: 57 year old male with bipolar disorder, COPD, insomnia, hypertension, recent admission for COPD exacerbation and pneumonia who presented with increasing shortness of breath and cough. He has been admitted with a likely HCAP, as well as COPD exacerbation. 1. HCAP: The patient is currently afebrile. Initial WBC was 12.1. The WBC has increased since admission, however, I suspect that this is secondary to demarginalization from his steroids. Chest x-ray did show a possible infiltrate in the right midlung. Continue meropenem. Flu screen and blood cultures are negative. 2. COPD exacerbation: The patient is currently on his home O2 2 L, and his wheezing has significantly decreased since yesterday. We will decrease his Solu- Medrol. We will continue scheduled and as needed DuoNeb's. Given the patient's multiple recent admissions, I also believe he would benefit from starting Spiriva, which we have started here. 3. Bipolar disorder/insomnia: continue home Paxil, doxepin, Risperdal, Depakote , Klonopin 4. Hypertension: Continue home Norvasc. DVT prophylaxis: Lovenox Dispo: pending improvement in respiratory status and ability to transition to oral steroids and oral antibiotics Per the patient's request, I have spoken to his sister Jannie on the phone to give her an update on his clinical status. VS, I&O, [facility]H, [facility] Vital Signs/I&O Vital Signs Date Time Temp Pulse Resp B/P Pulse Ox O2 Delivery O2 Flow Rate FiO2 02/28/17 14:00 98.9 108 20 135/71 93 Nasal Cannula 2.0 I&O- Last 24 Hours up to 6 AM 02/28/17 06:00 Intake Total 3547.56 ml Output Total 2700 ml Balance 847.56 ml Laboratory Data 24H LABS Laboratory Tests 2 02/28/17 06:10: Blood Urea Nitrogen 14, Creatinine 0.84, Sodium Level 141, Potassium Level 4.1, Chloride Level 103, Carbon Dioxide Level 27, Calcium Level 8.6, Aspartate Amino Transf (AST/SGOT) 53H, Alanine Aminotransferase (ALT/SGPT) 95H, Alkaline Phosphatase 67, Total Bilirubin 0.2, Total Protein 6.4, Albumin 3.0L, Albumin/ Globulin Ratio 0.88L, Anion Gap 11, White Blood Count 21.6H, Red Blood Count 4.19L, Hemoglobin 13.1L, Hematocrit 39.0L, Mean Corpuscular Volume 93.1, Mean Corpuscular Hemoglobin 31.2, Mean Corpuscular Hemoglobin Concent 33.5, Red Cell Distribution Width 13.1, Platelet Count 279, Neutrophils (%) (Auto) 83.2H, Lymphocytes (%) (Auto) 8.4L, Monocytes (%) (Auto) 7.1H, Eosinophils (%) (Auto) 0.1, Basophils (%) (Auto) 0.1, Neutrophils # (Auto) 18.0H, Lymphocytes # (Auto) 1.8, Monocytes # (Auto) 1.5H, Eosinophils # (Auto) 0.0, Basophils # (Auto) 0.0, Glomerular Filtration Rate > 60.0, Large Unclassified Cells # 0.2, Large Unclassified Cells % 1.0, Magnesium Level 2.4 CBC/BMP Laboratory Tests 02/28/17 06:10 Calcium Level 8.6, Aspartate Amino Transf (AST/SGOT) 53 H, Alanine Aminotransferase (ALT/SGPT) 95 H, Alkaline Phosphatase 67, Total Bilirubin 0.2, Total Protein 6.4, Albumin 3.0 L, Red Blood Count 4.19 L, Mean Corpuscular Volume 93.1, Mean Corpuscular Hemoglobin 31.2, Mean Corpuscular Hemoglobin Concent 33.5, Red Cell Distribution Width 13.1, Neutrophils (%) (Auto) 83.2 H, Lymphocytes (%) (Auto) 8.4 L, Monocytes (%) (Auto) 7.1 H, Eosinophils (%) (Auto ) 0.1, Basophils (%) (Auto) 0.1, Neutrophils # (Auto) 18.0 H, Lymphocytes # ( Auto) 1.8, Monocytes # (Auto) 1.5 H, Eosinophils # (Auto) 0.0, Basophils # (Auto ) 0.0 Microbiology Microbiology 02/24/17 Blood Culture - Preliminary, Resulted No Growth after 72 hours. All specime... 02/24/17 Blood Culture - Preliminary, Resulted No Growth after 72 hours. All specime... 02/24/17 Influenza Virus Type A Antigen - Final, Complete 02/24/17 Influenza Virus Type B Antigen - Final, Complete ANT HOWELL Feb 28, 2017 17:39
[2017-02-28] MEDS: DOXEPIN 25 MG CAP PO SCH (20:18)
[2017-02-28 22:00] VITALS: BP 114/72
[2017-02-28] MEDS: IPRATROPIUM 0.5MG/ALBUTEROL 2.5MG INH SOL UD 3ML (DUONEB)(J7620) NEB PRN (23:38)
[2017-03-01] MEDS: IPRATROPIUM 0.5MG/ALBUTEROL 2.5MG INH SOL UD 3ML (DUONEB)(J7620) NEB SCH ×5 (03:35→23:18)
[2017-03-01 06:00] VITALS: BP 146/78
[2017-03-01] MEDS: methylPREDNISolone INJ 125 MG/2 ML VIAL (J2930) IV SCH (06:01)
[2017-03-01 06:40] LABS: BASO % 0.2 % (0.0-1.0); EOS # 0.1 K/mm3 (0.0-0.50); EOS % 0.3 % (0.0-3.0); LARGE UNSTAINED CELL # 0.3 K/mm3 (0.0-0.4); LARGE UNSTAINED CELL % 1.1 % (0.0-4.0); LYMPH # 1.7 K/mm3 (1.5-4.5); LYMPH % 7.4 % (24.0-44.0); MEAN CORPUSCULAR HEMOGLOBIN 30.8 pg (27.0-33.0); MEAN CORPUSCULAR VOLUME 93.4 fl (80.0-96.0); MONO # 1.6 K/mm3 (0.0-0.8); NEUTROPHILS # 19.6 K/mm3 (1.8-7.7); PLATELET COUNT, AUTOMATED 288 k/mm3 (150-450); RED CELL DISTRIBUTION WIDTH 13.2 % (11.5-14.5); WHITE BLOOD COUNT 23.3 K/mm3 (4.0-10.0)
[2017-03-01 06:55] LABS: ALBUMIN 2.9 GM/DL (3.2-5.2); ALBUMIN/GLOBULIN RATIO 0.91 (1.00-1.93); ALKALINE PHOSPHATASE 64 U/L (45-117); ALT/SGPT 148 U/L (12-78); ANION GAP 7 MEQ/L (8-16); AST/SGOT 71 U/L (15-37); BILIRUBIN,TOTAL 0.3 MG/DL (0.2-1.0); BLOOD UREA NITROGEN 18 MG/DL (7-18); CALCIUM LEVEL 8.7 MG/DL (8.5-10.1); CARBON DIOXIDE LEVEL 29 MEQ/L (21-32); CHLORIDE LEVEL 103 MEQ/L (98-107); CREATININE FOR GFR 0.81 MG/DL (0.70-1.30); GLOMERULAR FILTRATION RATE > 60.0 (>56); GLUCOSE, FASTING 115 MG/DL (70-105); MAGNESIUM LEVEL 2.4 MG/DL (1.8-2.4); POTASSIUM SERUM 4.3 MEQ/L (3.5-5.1); SODIUM LEVEL 139 MEQ/L (136-145); TOTAL PROTEIN 6.1 GM/DL (6.4-8.2)
[2017-03-01] MEDS: TIOTROPIUM INHALER/CAPSULE (SPIRIVA) INH SCH (08:05)
[2017-03-01] MEDS: clonazePAM 0.5 MG TAB PO SCH (08:25)
[2017-03-01] MEDS: MEROPENEM INJ 1 GM in D5W MINI-BAG PLUS 100 ML IV SCH ×3 (08:25→23:14)
[2017-03-01] MEDS: DIVALPROEX 500MG *ER* TAB PO SCH ×2 (08:25→20:51)
[2017-03-01] MEDS: PARoxetine 20 MG TAB PO SCH ×2 (08:25→20:51)
[2017-03-01] MEDS: amLODIPine 10 MG TAB PO SCH (08:26)
[2017-03-01] MEDS: risperiDONE 2 MG TAB PO SCH ×2 (08:26→20:51)
[2017-03-01] MEDS: ENOXAPARIN 40 MG/0.4 ML SYRINGE (J1650) SC SCH (08:26)
[2017-03-01 14:00] VITALS: BP 136/72
--- NOTE | 2017-03-01 15:41 | REP ---
Abdominal right upper quadrant ultrasound: There are no comparison studies. There is cholelithiasis with two gallbladder calculi. However, there is a negative Chavez's sign to transducer pressure. The calculi measure approximate 1 cm in diameter each. There is mild gallbladder wall thickening measuring up to 3.4 mm (normal 2 mm). There is no gallbladder wall distension or pericholecystic fluid. There is no intrahepatic or extrahepatic biliary duct dilatation, the common duct measures 6 mm in diameter. The hepatic parenchyma is mildly echogenic compatible with hepato steatosis but otherwise unremarkable. The small portion of the visualized pancreatic head is unremarkable. There is no right renal hydronephrosis, calculus, mass or cyst. The right kidney is normal size measuring 11.5 cm craniocaudad length. Impression: Cholelithiasis. Minimal gallbladder wall thickening. Hepato steatosis. Signed by Ganesh Rodrigues MD 03/01/2017 03:33 P
--- NOTE | 2017-03-01 16:17 | IPNPDOC ---
Date Seen The patient was seen on 03/01/17. Progress Note Hospitalist Progress Note Subjective: Patient feels that his breathing is a bit better today; he denies any abd pain or nausea/vomiting Objective: Physical Exam: Vitals: Vital Sign - Last 24 Hours 02/28/17 02/28/17 02/28/17 02/28/17 19:58 20:18 22:00 23:38 Temp 97.9 Pulse 99 Resp 17 B/P 114/72 Pulse Ox 94 O2 Delivery Nasal Cannula Nasal Cannula Nasal Cannula Nasal Cannula O2 Flow Rate 2.0 2.0 2.0 2.0 03/01/17 03/01/17 03/01/17 03/01/17 03:35 06:00 08:25 08:26 Temp 98.2 Pulse 98 105 Resp 20 B/P 146/78 170/80 Pulse Ox 94 O2 Delivery Nasal Cannula Nasal Cannula Nasal Cannula O2 Flow Rate 2.0 2.0 2.0 03/01/17 14:00 Temp 99.1 Pulse 102 Resp 20 B/P 136/72 Pulse Ox 93 O2 Delivery Nasal Cannula O2 Flow Rate 2.0 General: Awake, alert, no acute distress HEENT: Normocephalic, atraumatic, extraocular movements intact CV: Regular rate and rhythm, no murmurs rubs or gallops Lungs: moving very good air, hardly any wheeze Abd: Soft, nontender to even deep palpation of all quadrants, nondistended Extremities: No edema of the bilateral lower extremities Neuro: Alert And oriented 3, normal speech Psych: Normal mood and affect Labs and Imaging: Laboratory Tests 03/01/17 06:14 Calcium Level 8.7, Aspartate Amino Transf (AST/SGOT) 71 H, Alanine Aminotransferase (ALT/SGPT) 148 H, Alkaline Phosphatase 64, Total Bilirubin 0.3 , Total Protein 6.1 L, Albumin 2.9 L, Red Blood Count 4.14 L, Mean Corpuscular Volume 93.4, Mean Corpuscular Hemoglobin 30.8, Mean Corpuscular Hemoglobin Concent 33.0, Red Cell Distribution Width 13.2, Neutrophils (%) (Auto) 84.0 H, Lymphocytes (%) (Auto) 7.4 L, Monocytes (%) (Auto) 7.0 H, Eosinophils (%) (Auto ) 0.3, Basophils (%) (Auto) 0.2, Neutrophils # (Auto) 19.6 H, Lymphocytes # ( Auto) 1.7, Monocytes # (Auto) 1.6 H, Eosinophils # (Auto) 0.1, Basophils # (Auto ) 0.0 Assessment and Plan: 57 year old male with bipolar disorder, COPD, insomnia, hypertension, recent admission for COPD exacerbation and pneumonia who presented with increasing shortness of breath and cough. He has been admitted with a likely HCAP, as well as COPD exacerbation. 1. HCAP: The patient is currently afebrile. Initial WBC was 12.1. The WBC has increased since admission, however, I suspect that this is secondary to demarginalization from his steroids. Chest x-ray did show a possible infiltrate in the right midlung. Continue meropenem. Flu screen and blood cultures are negative. 2. COPD exacerbation: The patient is currently on his home O2 2 L, and his wheezing has significantly improved. We will decrease his Solu-Medrol again. We will continue scheduled and as needed DuoNeb's. Given the patient's multiple recent admissions, I also believe he would benefit from starting Spiriva, which we have started here. 3. Bipolar disorder/insomnia: continue home Paxil, doxepin, Risperdal, Depakote , Klonopin 4. Hypertension: Continue home Norvasc. 5. Newly Elevated LFTs: Etiology unclear; patient denies any GI symptoms and has no TTP on exam. Will continue to trend and assess with RUQ ultrasound. DVT prophylaxis: Lovenox Dispo: pending improvement in respiratory status and ability to transition to oral steroids and oral antibiotics VS, I&O, 24H, [facility] Vital Signs/I&O Vital Signs Date Time Temp Pulse Resp B/P Pulse Ox O2 Delivery O2 Flow Rate FiO2 03/01/17 14:00 99.1 102 20 136/72 93 Nasal Cannula 2.0 I&O- Last 24 Hours up to 6 AM 03/01/17 06:00 Intake Total 3780 ml Output Total 2425 ml Balance 1355 ml Laboratory Data 24H LABS Laboratory Tests 2 03/01/17 06:14: Blood Urea Nitrogen 18, Creatinine 0.81, Sodium Level 139, Potassium Level 4.3, Chloride Level 103, Carbon Dioxide Level 29, Calcium Level 8.7, Aspartate Amino Transf (AST/SGOT) 71H, Alanine Aminotransferase (ALT/SGPT) 148H, Alkaline Phosphatase 64, Total Bilirubin 0.3, Total Protein 6.1L, Albumin 2.9L, Albumin/ Globulin Ratio 0.91L, Anion Gap 7L, White Blood Count 23.3H, Red Blood Count 4.14L, Hemoglobin 12.8L, Hematocrit 38.6L, Mean Corpuscular Volume 93.4, Mean Corpuscular Hemoglobin 30.8, Mean Corpuscular Hemoglobin Concent 33.0, Red Cell Distribution Width 13.2, Platelet Count 288, Neutrophils (%) (Auto) 84.0H, Lymphocytes (%) (Auto) 7.4L, Monocytes (%) (Auto) 7.0H, Eosinophils (%) (Auto) 0.3, Basophils (%) (Auto) 0.2, Neutrophils # (Auto) 19.6H, Lymphocytes # (Auto) 1.7, Monocytes # (Auto) 1.6H, Eosinophils # (Auto) 0.1, Basophils # (Auto) 0.0, Glomerular Filtration Rate > 60.0, Large Unclassified Cells # 0.3, Large Unclassified Cells % 1.1, Magnesium Level 2.4 CBC/BMP Laboratory Tests 03/01/17 06:14 Calcium Level 8.7, Aspartate Amino Transf (AST/SGOT) 71 H, Alanine Aminotransferase (ALT/SGPT) 148 H, Alkaline Phosphatase 64, Total Bilirubin 0.3 , Total Protein 6.1 L, Albumin 2.9 L, Red Blood Count 4.14 L, Mean Corpuscular Volume 93.4, Mean Corpuscular Hemoglobin 30.8, Mean Corpuscular Hemoglobin Concent 33.0, Red Cell Distribution Width 13.2, Neutrophils (%) (Auto) 84.0 H, Lymphocytes (%) (Auto) 7.4 L, Monocytes (%) (Auto) 7.0 H, Eosinophils (%) (Auto ) 0.3, Basophils (%) (Auto) 0.2, Neutrophils # (Auto) 19.6 H, Lymphocytes # ( Auto) 1.7, Monocytes # (Auto) 1.6 H, Eosinophils # (Auto) 0.1, Basophils # (Auto ) 0.0 Microbiology Microbiology 02/24/17 Blood Culture - Final, Complete NO GROWTH AFTER 5 DAYS 02/24/17 Blood Culture - Final, Complete NO GROWTH AFTER 5 DAYS 02/24/17 Influenza Virus Type A Antigen - Final, Complete 02/24/17 Influenza Virus Type B Antigen - Final, Complete ANT HOWELL Mar 01, 2017 16:17
[2017-03-01] MEDS: DOXEPIN 25 MG CAP PO SCH (20:51)
[2017-03-01 22:00] VITALS: BP 137/69
[2017-03-01] MEDS: methylPREDNISolone INJ 40 MG/1 ML VIAL (J2920) IV SCH (23:13)
[2017-03-02] MEDS: IPRATROPIUM 0.5MG/ALBUTEROL 2.5MG INH SOL UD 3ML (DUONEB)(J7620) NEB PRN (04:05)
[2017-03-02 06:00] VITALS: BP 163/78
[2017-03-02] MEDS: methylPREDNISolone INJ 40 MG/1 ML VIAL (J2920) IV SCH ×2 (06:02→19:41)
[2017-03-02 06:29] LABS: ALBUMIN 2.6 GM/DL (3.2-5.2); ALBUMIN/GLOBULIN RATIO 0.76 (1.00-1.93); ALKALINE PHOSPHATASE 69 U/L (45-117); ALT/SGPT 132 U/L (12-78); ANION GAP 9 MEQ/L (8-16); AST/SGOT 47 U/L (15-37); BILIRUBIN,TOTAL 0.2 MG/DL (0.2-1.0); BLOOD UREA NITROGEN 20 MG/DL (7-18); CALCIUM LEVEL 8.1 MG/DL (8.5-10.1); CARBON DIOXIDE LEVEL 26 MEQ/L (21-32); CHLORIDE LEVEL 105 MEQ/L (98-107); CREATININE FOR GFR 0.85 MG/DL (0.70-1.30); GLOMERULAR FILTRATION RATE > 60.0 (>56); GLUCOSE, FASTING 102 MG/DL (70-105); MAGNESIUM LEVEL 2.5 MG/DL (1.8-2.4); POTASSIUM SERUM 4.5 MEQ/L (3.5-5.1); SODIUM LEVEL 140 MEQ/L (136-145)
[2017-03-02 06:44] LABS: MEAN CORPUSCULAR HEMOGLOBIN 31.2 pg (27.0-33.0); MEAN CORPUSCULAR HGB CONC 33.3 g/dl (32.0-36.5); MEAN CORPUSCULAR VOLUME 93.9 fl (80.0-96.0); PLATELET COUNT, AUTOMATED 274 k/mm3 (150-450); RED CELL DISTRIBUTION WIDTH 13.4 % (11.5-14.5); WHITE BLOOD COUNT 21.4 K/mm3 (4.0-10.0)
[2017-03-02 07:04] LABS: BANDS 1 % (< 11)
[2017-03-02] MEDS: MEROPENEM INJ 1 GM in D5W MINI-BAG PLUS 100 ML IV SCH ×3 (08:07→23:19)
[2017-03-02] MEDS: DIVALPROEX 500MG *ER* TAB PO SCH ×2 (08:08→19:42)
[2017-03-02] MEDS: amLODIPine 10 MG TAB PO SCH (08:08)
[2017-03-02] MEDS: PARoxetine 20 MG TAB PO SCH ×2 (08:08→19:41)
[2017-03-02] MEDS: clonazePAM 0.5 MG TAB PO SCH (08:08)
[2017-03-02] MEDS: ENOXAPARIN 40 MG/0.4 ML SYRINGE (J1650) SC SCH (08:08)
[2017-03-02] MEDS: risperiDONE 2 MG TAB PO SCH ×2 (08:08→19:41)
[2017-03-02] MEDS: TIOTROPIUM INHALER/CAPSULE (SPIRIVA) INH SCH (08:13)
[2017-03-02] MEDS: IPRATROPIUM 0.5MG/ALBUTEROL 2.5MG INH SOL UD 3ML (DUONEB)(J7620) NEB SCH ×3 (08:13→20:31)
[2017-03-02 14:00] VITALS: BP 150/80
--- NOTE | 2017-03-02 14:59 | IPNPDOC ---
Date Seen The patient was seen on 03/02/17. Progress Note Hospitalist Progress Note Subjective: Patient feels that his breathing continues to improve Objective: Physical Exam: Vitals: Vital Sign - Last 24 Hours 03/01/17 03/01/17 03/01/17 03/02/17 20:11 20:51 22:00 06:00 Temp 99.1 97.7 Pulse 105 99 Resp 20 20 B/P 137/69 163/78 Pulse Ox 92 92 O2 Delivery Nasal Cannula Nasal Cannula Nasal Cannula Nasal Cannula O2 Flow Rate 2.0 2.0 2.0 2.0 03/02/17 03/02/17 03/02/17 08:08 09:00 14:00 Temp 98.2 Pulse 99 103 Resp 20 B/P 163/78 150/80 Pulse Ox 92 O2 Delivery Nasal Cannula Nasal Cannula O2 Flow Rate 2.0 2.0 General: Awake, alert, no acute distress HEENT: Normocephalic, atraumatic, extraocular movements intact CV: Regular rate and rhythm, no murmurs rubs or gallops Lungs: moving very good air, no wheeze Abd: Soft, nontender, nondistended Extremities: No edema of the bilateral lower extremities Neuro: Alert And oriented 3, normal speech Psych: Normal mood and affect Labs and Imaging: Laboratory Tests 03/02/17 05:58 Calcium Level 8.1 L, Aspartate Amino Transf (AST/SGOT) 47 H, Alanine Aminotransferase (ALT/SGPT) 132 H, Alkaline Phosphatase 69, Total Bilirubin 0.2 , Total Protein 6.0 L, Albumin 2.6 L, Red Blood Count 3.93 L, Mean Corpuscular Volume 93.9, Mean Corpuscular Hemoglobin 31.2, Mean Corpuscular Hemoglobin Concent 33.3, Red Cell Distribution Width 13.4, Neutrophils (%) (Auto) , Lymphocytes (%) (Auto) , Monocytes (%) (Auto) , Eosinophils (%) (Auto) , Basophils (%) (Auto) , Neutrophils # (Auto) , Lymphocytes # (Auto) , Monocytes # (Auto) , Eosinophils # (Auto) , Basophils # (Auto) Assessment and Plan: 57 year old male with bipolar disorder, COPD, insomnia, hypertension, recent admission for COPD exacerbation and pneumonia who presented with increasing shortness of breath and cough. He has been admitted with a likely HCAP, as well as COPD exacerbation. 1. HCAP: The patient is currently afebrile. Initial WBC was 12.1. The WBC has increased since admission, however, I suspect that this is secondary to demarginalization from his steroids. Chest x-ray did show a possible infiltrate in the right midlung. Continue meropenem for 7 days as patient recently was on levaquin and still developed new PNA (currently on day 6). Flu screen and blood cultures are negative. 2. COPD exacerbation: The patient is currently on his home O2 2 L, and his wheezing has significantly improved. We will decrease his Solu-Medrol again. We will continue scheduled and as needed DuoNeb's. Given the patient's multiple recent admissions, I also believe he would benefit from starting Spiriva, which we have started here. 3. Bipolar disorder/insomnia: continue home Paxil, doxepin, Risperdal, Depakote , Klonopin 4. Hypertension: Continue home Norvasc. 5. Newly Elevated LFTs: Etiology unclear; patient denies any GI symptoms and has no TTP on exam. RUQ ultrasound was relatively unremarkable but did show some hepatic steatosis. Now downtrending; continue to monitor. DVT prophylaxis: Lovenox Dispo: pending improvement in respiratory status and ability to transition to oral steroids and oral antibiotics, likely tomorrow VS, [facility]O, [facility] Vital Signs/I&O Vital Signs Date Time Temp Pulse Resp B/P Pulse Ox O2 Delivery O2 Flow Rate FiO2 03/02/17 14:00 98.2 103 20 150/80 92 Nasal Cannula 2.0 I&O- Last 24 Hours up to 6 AM 03/02/17 06:00 Intake Total 2220 ml Output Total 1450 ml Balance 770 ml Laboratory Data 24H LABS Laboratory Tests 2 03/02/17 05:58: Blood Urea Nitrogen 20H, Creatinine 0.85, Sodium Level 140, Potassium Level 4.5 , Chloride Level 105, Carbon Dioxide Level 26, Calcium Level 8.1L, Aspartate Amino Transf (AST/SGOT) 47H, Alanine Aminotransferase (ALT/SGPT) 132H, Alkaline Phosphatase 69, Total Bilirubin 0.2, Total Protein 6.0L, Albumin 2.6L, Albumin/ Globulin Ratio 0.76L, Anion Gap 9, Atypical Lymphocytes 2, Band Neutrophils 1, White Blood Count 21.4H, Red Blood Count 3.93L, Hemoglobin 12.3L, Hematocrit 36.9L, Mean Corpuscular Volume 93.9, Mean Corpuscular Hemoglobin 31.2, Mean Corpuscular Hemoglobin Concent 33.3, Red Cell Distribution Width 13.4, Platelet Count 274, Neutrophils (%) (Auto) , Lymphocytes (%) (Auto) , Monocytes (%) (Auto ) , Eosinophils (%) (Auto) , Basophils (%) (Auto) , Neutrophils # (Auto) , Lymphocytes # (Auto) , Monocytes # (Auto) , Eosinophils # (Auto) , Basophils # ( Auto) , Glomerular Filtration Rate > 60.0, Large Unclassified Cells # , Large Unclassified Cells % , Lymphocytes (Manual) 9L, Magnesium Level 2.5H, Monocytes (Manual) 7, Neutrophils 81H, Platelet Estimate NORMAL, Red Blood Cell Morphology NORMAL CBC/BMP Laboratory Tests 03/02/17 05:58 Calcium Level 8.1 L, Aspartate Amino Transf (AST/SGOT) 47 H, Alanine Aminotransferase (ALT/SGPT) 132 H, Alkaline Phosphatase 69, Total Bilirubin 0.2 , Total Protein 6.0 L, Albumin 2.6 L, Red Blood Count 3.93 L, Mean Corpuscular Volume 93.9, Mean Corpuscular Hemoglobin 31.2, Mean Corpuscular Hemoglobin Concent 33.3, Red Cell Distribution Width 13.4, Neutrophils (%) (Auto) , Lymphocytes (%) (Auto) , Monocytes (%) (Auto) , Eosinophils (%) (Auto) , Basophils (%) (Auto) , Neutrophils # (Auto) , Lymphocytes # (Auto) , Monocytes # (Auto) , Eosinophils # (Auto) , Basophils # (Auto) Microbiology Microbiology 02/24/17 Blood Culture - Final, Complete NO GROWTH AFTER 5 DAYS 02/24/17 Blood Culture - Final, Complete NO GROWTH AFTER 5 DAYS 02/24/17 Influenza Virus Type A Antigen - Final, Complete 02/24/17 Influenza Virus Type B Antigen - Final, Complete ANT HOWELL Mar 02, 2017 14:59
[2017-03-02] MEDS: DOXEPIN 25 MG CAP PO SCH (19:42)
[2017-03-02 22:00] VITALS: BP 151/71
[2017-03-03] MEDS: IPRATROPIUM 0.5MG/ALBUTEROL 2.5MG INH SOL UD 3ML (DUONEB)(J7620) NEB SCH ×3 (01:59→13:32)
[2017-03-03 06:00] VITALS: BP 156/80
[2017-03-03] MEDS: methylPREDNISolone INJ 40 MG/1 ML VIAL (J2920) IV SCH (06:11)
[2017-03-03 07:23] LABS: ALBUMIN 2.8 GM/DL (3.2-5.2); ALBUMIN/GLOBULIN RATIO 0.85 (1.00-1.93); ALKALINE PHOSPHATASE 72 U/L (45-117); ALT/SGPT 117 U/L (12-78); ANION GAP 9 MEQ/L (8-16); AST/SGOT 31 U/L (15-37); BILIRUBIN,TOTAL 0.2 MG/DL (0.2-1.0); BLOOD UREA NITROGEN 16 MG/DL (7-18); CALCIUM LEVEL 8.2 MG/DL (8.5-10.1); CARBON DIOXIDE LEVEL 29 MEQ/L (21-32); CHLORIDE LEVEL 101 MEQ/L (98-107); CREATININE FOR GFR 0.75 MG/DL (0.70-1.30); GLOMERULAR FILTRATION RATE > 60.0 (>56); GLUCOSE, FASTING 99 MG/DL (70-105); MAGNESIUM LEVEL 2.4 MG/DL (1.8-2.4); POTASSIUM SERUM 4.3 MEQ/L (3.5-5.1); SODIUM LEVEL 139 MEQ/L (136-145); TOTAL PROTEIN 6.1 GM/DL (6.4-8.2)
[2017-03-03] MEDS: TIOTROPIUM INHALER/CAPSULE (SPIRIVA) INH SCH (07:24)
[2017-03-03 07:32] LABS: MEAN CORPUSCULAR HEMOGLOBIN 31.7 pg (27.0-33.0); MEAN CORPUSCULAR HGB CONC 33.9 g/dl (32.0-36.5); MEAN CORPUSCULAR VOLUME 93.4 fl (80.0-96.0); PLATELET COUNT, AUTOMATED 257 k/mm3 (150-450); RED CELL DISTRIBUTION WIDTH 13.5 % (11.5-14.5); WHITE BLOOD COUNT 17.2 K/mm3 (4.0-10.0)
[2017-03-03] MEDS: PARoxetine 20 MG TAB PO SCH (09:12)
[2017-03-03] MEDS: risperiDONE 2 MG TAB PO SCH (09:12)
[2017-03-03] MEDS: ENOXAPARIN 40 MG/0.4 ML SYRINGE (J1650) SC SCH (09:12)
[2017-03-03] MEDS: clonazePAM 0.5 MG TAB PO SCH (09:12)
[2017-03-03] MEDS: MEROPENEM INJ 1 GM in D5W MINI-BAG PLUS 100 ML IV SCH (09:12)
[2017-03-03 09:13] VITALS: BP 156/70
[2017-03-03] MEDS: amLODIPine 10 MG TAB PO SCH (09:13)
[2017-03-03] MEDS: DIVALPROEX 500MG *ER* TAB PO SCH (09:13)
[2017-03-03] MEDS ORDERED: CEFD1CAP8 PO (11:30)
[2017-03-03] MEDS ORDERED: PRED10TA PO (11:30)
[2017-03-03] MEDS ORDERED: TIOT18INH INH (11:30)
[2017-03-03] MEDS ORDERED: IPRASOL4 NEB (11:30)
[2017-03-03] MEDS ORDERED: ALBU17IN2 INH (11:31)
--- NOTE | 2017-03-03 11:36 | DS.PDOC ---
Discharge Summary General Date of Admission Feb 24, 2017 at 13:37 Date of Discharge 03/03/2017 Discharge Summary DATE OF ADMISSION: 02/24/2017 DATE OF DISCHARGE: 03/03/2017 PRIMARY CARE PHYSICIAN: Mattie Ziegler NP DISCHARGE DIAGNOS(E)S: COPD exacerbation HCAP Tranaminitis HPI & HOSPITAL COURSE: 57 year old male with bipolar disorder, COPD, insomnia, hypertension, recent admission for COPD exacerbation and pneumonia who presented with increasing shortness of breath and cough. He has been admitted with a likely HCAP, as well as COPD exacerbation. 1. HCAP: The patient is currently afebrile. Initial WBC was 12.1. The WBC has increased since admission, however, I suspect that this is secondary to demarginalization from his steroids. Chest x-ray did show a possible infiltrate in the right midlung. He is now s/p meropenem for 7 days as patient recently was on levaquin and still developed new PNA. He will be sent home on omnicef. Flu screen and blood cultures are negative. 2. COPD exacerbation: The patient is currently on his home O2 2 L, and his wheezing has resolved. We will change his Solu-Medrol to PO prednisone. We will continue as needed DuoNeb's. Given the patient's multiple recent admissions, I also believe he would benefit from starting Spiriva, which we have started here. 3. Bipolar disorder/insomnia: continue home Paxil, doxepin, Risperdal, Depakote , Klonopin 4. Hypertension: Continue home Norvasc. 5. Newly Elevated LFTs: Etiology unclear; patient denies any GI symptoms and has no TTP on exam. RUQ ultrasound was relatively unremarkable but did show some hepatic steatosis. Now downtrending; continue to monitor. DVT prophylaxis: Lovenox PHYSICAL EXAMINATION ON DISCHARGE: VITAL SIGNS: Vital Signs Date Time Temp Pulse Resp B/P Pulse Ox O2 Delivery O2 Flow Rate FiO2 03/03/17 09:13 90 156/70 03/03/17 06:00 97.8 18 90 Nasal Cannula 2.0 General: Awake, alert, no acute distress HEENT: Normocephalic, atraumatic, extraocular movements intact CV: Regular rate and rhythm, no murmurs rubs or gallops Lungs: moving very good air, no wheeze Abd: Soft, nontender, nondistended Extremities: No edema of the bilateral lower extremities Neuro: Alert And oriented 3, normal speech Psych: Normal mood and affect DISPOSITION: Home, resume home health DISCHARGE INSTRUCTIONS: Follow-up with PCP within one week. Will need CMP check for resolution of transaminitis. If symptoms return, or if you experience worsening of your symptoms, please call your doctor or return to the emergency department. ITEMS THAT NEED OUTPATIENT FOLLOWUP: Repeat CMP to evaluate for resolution of transaminitis Patient was seen and examined by me on the day of discharge, and I spent a total time of greater than 30 minutes on this discharge. Vital Signs/I&Os Vital Signs Date Time Temp Pulse Resp B/P Pulse Ox O2 Delivery O2 Flow Rate FiO2 03/03/17 09:13 90 156/70 03/03/17 06:00 97.8 18 90 Nasal Cannula 2.0 I&O- Last 24 Hours up to 6 AM 03/03/17 06:00 Intake Total 2740 ml Output Total 1850 ml Balance 890 ml Laboratory Data Labs 24H Laboratory Tests 2 03/03/17 06:42: Blood Urea Nitrogen 16, Creatinine 0.75, Sodium Level 139, Potassium Level 4.3, Chloride Level 101, Carbon Dioxide Level 29, Calcium Level 8.2L, Aspartate Amino Transf (AST/SGOT) 31, Alanine Aminotransferase (ALT/SGPT) 117H, Alkaline Phosphatase 72, Total Bilirubin 0.2, Total Protein 6.1L, Albumin 2.8L, Albumin/ Globulin Ratio 0.85L, Anion Gap 9, Atypical Lymphocytes 1, White Blood Count 17.2H, Red Blood Count 4.14L, Hemoglobin 13.1L, Hematocrit 38.7L, Mean Corpuscular Volume 93.4, Mean Corpuscular Hemoglobin 31.7, Mean Corpuscular Hemoglobin Concent 33.9, Red Cell Distribution Width 13.5, Platelet Count 257, Neutrophils (%) (Auto) , Lymphocytes (%) (Auto) , Monocytes (%) (Auto) , Eosinophils (%) (Auto) , Basophils (%) (Auto) , Neutrophils # (Auto) , Lymphocytes # (Auto) , Monocytes # (Auto) , Eosinophils # (Auto) , Basophils # ( Auto) , Glomerular Filtration Rate > 60.0, Large Unclassified Cells # , Large Unclassified Cells % , Lymphocytes (Manual) 13L, Magnesium Level 2.4, Metamyelocytes 7H, Monocytes (Manual) 3, Neutrophils 76H, Platelet Estimate NORMAL, Red Blood Cell Morphology NORMAL CBC/BMP Laboratory Tests 03/03/17 06:42 Calcium Level 8.2 L, Aspartate Amino Transf (AST/SGOT) 31, Alanine Aminotransferase (ALT/SGPT) 117 H, Alkaline Phosphatase 72, Total Bilirubin 0.2 , Total Protein 6.1 L, Albumin 2.8 L, Red Blood Count 4.14 L, Mean Corpuscular Volume 93.4, Mean Corpuscular Hemoglobin 31.7, Mean Corpuscular Hemoglobin Concent 33.9, Red Cell Distribution Width 13.5, Neutrophils (%) (Auto) , Lymphocytes (%) (Auto) , Monocytes (%) (Auto) , Eosinophils (%) (Auto) , Basophils (%) (Auto) , Neutrophils # (Auto) , Lymphocytes # (Auto) , Monocytes # (Auto) , Eosinophils # (Auto) , Basophils # (Auto) Microbiology Microbiology 02/24/17 Blood Culture - Final, Complete NO GROWTH AFTER 5 DAYS 02/24/17 Blood Culture - Final, Complete NO GROWTH AFTER 5 DAYS 02/24/17 Influenza Virus Type A Antigen - Final, Complete 02/24/17 Influenza Virus Type B Antigen - Final, Complete Discharge Medications Scheduled ([Estazolam]) 2 MG PO QHS (Reported) (Risperidone) 2 Mg Tab 2 MG PO BID (Reported) Amlodipine Besylate (Amlodipine Besylate) 10 Mg Tab 10 MG PO DAILY (Reported) Cefdinir (Cefdinir) 300 Mg Cap 300 MG PO BID Clonazepam (Clonazepam) 0.5 Mg Tab 0.5 MG PO DAILY (Reported) Divalproex Sodium (Depakote ER) 500 Mg Tab 500 MG PO QAM (Reported) Divalproex Sodium (Depakote ER) 500 Mg Tab 1,500 MG PO QHS (Reported) Doxepin HCl (Doxepin HCl) 100 Mg Cap 100 MG PO QHS (Reported) TAKES WITH 150MG =250MG TOTAL Doxepin Hcl (Doxepin HCl) 150 Mg Cap 150 MG PO QHS (Reported) TAKES WITH 100MG =250MG TOTAL Paroxetine Hydrochloride (Paxil) 20 Mg Tab 20 MG PO BID (Reported) Prednisone (Prednisone) 10 Mg Tab 10 MG PO ASDIRECTED 4 tabs PO daily x4days then 3 tabs PO daily x4days then 2 tabs PO daily x4days then 1 tab PO daily x4days then stop Tiotropium Shelby Monohydrate (Spiriva Handihaler) 5 Inhalation/Inhaler Powd 1 INHALATION INH DAILY@08 Scheduled PRN Albuterol Sulfate (Proventil Hfa) 167 Puff/6.7 Gm Aers 2 PUFFS INH Q4HP PRN PRN SOB/WHEEZING Albuterol/Ipratropium (Ipratropium Shelby/Albut 0.5-2.5 (3) mg/3Ml) 1 Roxi Roxi 3 ML NEB Q4HP PRN PRN SOB/WHEEZING Allergies Coded Allergies: Penicillins (Verified Allergy, Intermediate, hives, 02/24/17) ANT HOWELL Mar 03, 2017 11:36
== END 2017-03-03 13:30 | disposition home health service (06) | DRG 190 ==
LOC: M ED 12:15 → M ED INP 13:37 → M MSPAV 15:15
PROVIDERS: ADMIT Internal Medicine; ATTEND Hospitalist
DX: J44.0 Chronic obstructive pulmonary disease with (acute) lower respiratory infection (principal); J18.9 Pneumonia, unspecified organism; J44.1 Chronic obstructive pulmonary disease with (acute) exacerbation; G47.00 Insomnia, unspecified; F31.9 Bipolar disorder, unspecified; I10 Essential (primary) hypertension; R94.5 Abnormal results of liver function studies; Z79.899 Other long term (current) drug therapy; Z88.0 Allergy status to penicillin; Z99.81 Dependence on supplemental oxygen; Z87.891 Personal history of nicotine dependence

== ENCOUNTER → 2017-03-20 | Outpatient (REF) | payer MEDICARE ==
[~2017-03-20] MED LIST changes: +ALBU17IN2 INH; +CEFD1CAP8 PO; +IPRASOL4 NEB; +PRED10TA PO; +TIOT18INH INH
== END ==
LOC: M LAB REF 16:20
PROVIDERS: ATTEND Nurse Practitioner Family
DX: F31.13 Bipolar disorder, current episode manic without psychotic features, severe (principal); Z79.899 Other long term (current) drug therapy

== ENCOUNTER → 2017-03-21 | Outpatient (REF) | payer MEDICARE | LOC: M LAB REF 13:18 | PROVIDERS: ATTEND Internal Medicine Pulmonary Disease | DX: R91.8 Other nonspecific abnormal finding of lung field (principal) ==

== ENCOUNTER → 2017-06-07 | Outpatient (REF) | payer MEDICARE ==
[~2017-06-07] MED LIST changes: +PAXI20TA29 PO; -PAXI20TA3 PO; -PRED10TA PO; +PRED10TA2 PO
== END ==
LOC: M LAB REF 16:23
PROVIDERS: ATTEND Nurse Practitioner Adult Health
DX: E87.1 Hypo-osmolality and hyponatremia (principal)

== ENCOUNTER → 2017-11-23 | Outpatient (REF) | payer MEDICARE ==
[2017-11-25 08:06] LABS: LDL DIRECT 285 mg/dL (0-99)
== END ==
LOC: M LAB REF 18:40
DX: E78.2 Mixed hyperlipidemia (principal)
CPT/HCPCS: 83721

== ENCOUNTER 2018-02-24 13:14 | Emergency (ER) | payer MEDICARE | END 2018-02-24 14:27 | disposition left against medical advice (07) | LOC: M ED 13:14 | DX: S49.91XA Unspecified injury of right shoulder and upper arm, initial encounter (principal); Z53.21 Procedure and treatment not carried out due to patient leaving prior to being seen by health care provider ==

== ENCOUNTER 2018-02-25 12:44 | Emergency (ER) | payer MEDICARE ==
[2018-02-25] MEDS: KETOROLAC TROMETHAMINE 10 MG TAB PO (13:43)
== END 2018-02-25 14:31 | disposition home or self-care (01) ==
LOC: M ED 12:44
DX: S46.812A Strain of other muscles, fascia and tendons at shoulder and upper arm level, left arm, initial encounter (principal); M25.522 Pain in left elbow; X50.0XXA Overexertion from strenuous movement or load, initial encounter; Y92.098 Other place in other non-institutional residence as the place of occurrence of the external cause; I10 Essential (primary) hypertension; E78.5 Hyperlipidemia, unspecified; J44.9 Chronic obstructive pulmonary disease, unspecified; F31.9 Bipolar disorder, unspecified; F41.9 Anxiety disorder, unspecified; Z87.891 Personal history of nicotine dependence; Z88.0 Allergy status to penicillin; Z79.899 Other long term (current) drug therapy; Z79.51 Long term (current) use of inhaled steroids
CPT/HCPCS: 73030

== ENCOUNTER 2018-06-05 11:54 | Emergency (ER) | payer MEDICARE, SELFPAY ==
[2018-06-05] MEDS ORDERED: NAPROXEN 250 MG TAB PO ×2 (14:30)
[2018-06-05] MEDS: CLINDAMYCIN 150 MG CAP PO ×2 (14:34)
== END 2018-06-05 14:43 | disposition home or self-care (01) ==
LOC: M ED 11:54
DX: K04.7 Periapical abscess without sinus (principal); S02.5XXA Fracture of tooth (traumatic), initial encounter for closed fracture; X58.XXXA Exposure to other specified factors, initial encounter; Y92.89 Other specified places as the place of occurrence of the external cause; K02.9 Dental caries, unspecified; I10 Essential (primary) hypertension; E78.00 Pure hypercholesterolemia, unspecified; I67.1 Cerebral aneurysm, nonruptured; J44.9 Chronic obstructive pulmonary disease, unspecified; F31.9 Bipolar disorder, unspecified; F41.9 Anxiety disorder, unspecified; Z88.0 Allergy status to penicillin; Z79.899 Other long term (current) drug therapy; Z79.51 Long term (current) use of inhaled steroids
CPT/HCPCS: 99283

== ENCOUNTER 2018-07-19 11:15 | Emergency (ER) | payer MEDICARE, SELFPAY | END 2018-07-19 13:07 | disposition home or self-care (01) | LOC: M ED 11:15 | DX: K02.9 Dental caries, unspecified (principal); I10 Essential (primary) hypertension; J44.9 Chronic obstructive pulmonary disease, unspecified; Z79.899 Other long term (current) drug therapy; Z79.82 Long term (current) use of aspirin; Z79.01 Long term (current) use of anticoagulants; Z88.0 Allergy status to penicillin | CPT/HCPCS: 99283 ==

== ENCOUNTER → 2018-08-24 | Outpatient (REF) | payer MEDICARE ==
[2018-08-24 16:29] LABS: VALPROIC ACID (DEPAKOTE) 73.8 UG/ML (50.0-100.0)
== END ==
LOC: M LAB REF 15:52
DX: F31.10 Bipolar disorder, current episode manic without psychotic features, unspecified (principal)
CPT/HCPCS: 80164

== ENCOUNTER 2018-09-17 11:16 | Emergency (ER) | payer MEDICARE, SELFPAY ==
[~2018-09-17] VITALS: Ht 172.7 cm; Wt 90.9 kg
[~2018-09-17 11:16] MED LIST changes: -AMLO10TA2 PO; +AMLO10TA5 PO; +ASPI1CHW2 PO; +CLEO300C2 PO; +CLIN150C14 PO; -CLON0.5T PO; +CLON0.5T8 PO; +DOXE150C PO; -DOXE150C7 PO; +IPRA0.00 NEB; -IPRASOL4 NEB; +LOSA100T50 PO; +MAGICMW SS; +NAPR-50 PO; +NORCO,; +NORCOTAB PO; +PLAV1TAB2 PO; +SERO1TAB
[2018-09-17] MEDS ORDERED: GABA-845 PO (12:57)
[2018-09-17] MEDS ORDERED: NORCOTAB PO (14:50)
[2018-09-17 14:57] VITALS: BP 128/65
[2018-10-13] MEDS ORDERED: NORCOTAB PO (08:48)
== END 2018-09-17 14:59 | disposition home or self-care (01) ==
LOC: M ED 11:16
DX: K02.9 Dental caries, unspecified (principal); I10 Essential (primary) hypertension; J45.909 Unspecified asthma, uncomplicated; R56.9 Unspecified convulsions; Z79.899 Other long term (current) drug therapy; Z88.0 Allergy status to penicillin

== ENCOUNTER 2018-10-13 07:40 | Emergency (ER) | payer MEDICARE ==
[2018-10-13] MEDS: NORCO, ANEXSIA 5/325MG TABLET (HYDROcodone/ACETAMINOPHEN) PO (09:00)
== END 2018-10-13 09:16 | disposition home or self-care (01) ==
LOC: M ED 07:40
DX: R68.84 Jaw pain (principal); Z98.818 Other dental procedure status; K08.409 Partial loss of teeth, unspecified cause, unspecified class; I10 Essential (primary) hypertension; J44.9 Chronic obstructive pulmonary disease, unspecified; F31.9 Bipolar disorder, unspecified; Z88.0 Allergy status to penicillin; Z79.899 Other long term (current) drug therapy; Z79.02 Long term (current) use of antithrombotics/antiplatelets; Z79.51 Long term (current) use of inhaled steroids; Z79.82 Long term (current) use of aspirin
CPT/HCPCS: 99283

== ENCOUNTER → 2019-05-02 | Outpatient (REF) | payer MEDICARE ==
[~2019-05-02] MED LIST changes: +GABA-845 PO; +HYDR-3715 PO; -NAPR-50 PO; +NAPR-837 PO; -NORCOTAB PO
== END ==
LOC: M LAB REF 16:06
PROVIDERS: ATTEND Nurse Practitioner Adult Health
DX: F31.10 Bipolar disorder, current episode manic without psychotic features, unspecified (principal)

== ENCOUNTER 2019-08-10 08:10 | Emergency (ER) | payer MEDICARE ==
[~2019-08-10] VITALS: Ht 172.7 cm; Wt 80.9 kg
[2019-08-10 08:10] VITALS: BP 176/95
[~2019-08-10 08:10] MED LIST changes: +CLON0.5T2 PO; -CLON0.5T8 PO
[2019-08-10] MEDS ORDERED: KETOROLAC 60 MG/2 ML VIAL (J1885) IM ONE (09:15)
== END 2019-08-10 10:36 | disposition left against medical advice (07) ==
LOC: M ED 08:10
DX: M25.512 Pain in left shoulder (principal); G89.29 Other chronic pain; I10 Essential (primary) hypertension; F17.210 Nicotine dependence, cigarettes, uncomplicated; F12.90 Cannabis use, unspecified, uncomplicated; Z87.01 Personal history of pneumonia (recurrent); Z87.81 Personal history of (healed) traumatic fracture; Z98.890 Other specified postprocedural states; Z82.49 Family history of ischemic heart disease and other diseases of the circulatory system; Z88.0 Allergy status to penicillin
CPT/HCPCS: 96372; 99281; J1885

== ENCOUNTER → 2019-08-30 | Outpatient (CLI) | payer MEDICARE ==
[~2019-08-30] MED LIST changes: -CLON0.5T2 PO; +CLON0.5T8 PO
--- NOTE | 2019-08-30 18:04 | REP ---
MRI left shoulder: Without contrast. History: Pain in the left shoulder. Rule out internal derangement. Comparison shoulder radiographs February 25, 2018. Technique: Axial, oblique coronal and oblique sagittal imaging planes utilized. T1 and T2-weighted scans are included with and without fat saturation. MRI findings: There is mild old appearing deformity of the distal clavicle and diastases of the AC joint suggesting old trauma or resection. AC joint is normally aligned. Glenohumeral articulation is normally aligned. Cortical and medullary bone signal intensity are otherwise normal. There is a tiny sliver of fluid in the subacromial subdeltoid bursa. No glenohumeral effusion is seen. There is mild tendonitis tendinosis change in the distal supraspinatus tendon. A focal T2 hyperintensity is seen at the tendon insertion on the bursal surface of the distal supraspinatus tendon which may be a small partial-thickness tear. No full thickness disruption is appreciated. The subscapularis and infraspinatus tendons are intact in appearance. Biceps tendon is unremarkable in position and appearance. No labral disruption is seen. No paralabral cyst is seen. Impression: Tendonitis tendinosis change distal supraspinatus tendon. Partial thickness insertion tear on the bursal side of the distal supraspinatus tendon suspected. Electronically Signed by Sloan Bowman MD 08/30/2019 07:51 P
== END ==
LOC: M PLARAD 13:06
PROVIDERS: ATTEND Orthopaedic Surgery
DX: M75.32 Calcific tendinitis of left shoulder (principal)

== ENCOUNTER 2020-01-22 07:41 | Emergency (ER) | payer MEDICARE ==
[~2020-01-22] VITALS: Ht 172.7 cm; Wt 76.7 kg
[2020-01-22 07:41] VITALS: BP 146/95
[~2020-01-22 07:41] MED LIST changes: +CLON0.5T2 PO; -CLON0.5T8 PO
[2020-01-22] MEDS ORDERED: PROZ20CA11 (07:52)
[2020-01-22] MEDS ORDERED: TRAZ-252 (07:52)
[2020-01-22] MEDS ORDERED: MIRT1TAB17 (07:52)
[2020-01-22] MEDS ORDERED: AMLO10TA5 (07:52)
[2020-01-22] MEDS ORDERED: FURO20TA2 (07:52)
[2020-01-22] MEDS ORDERED: SERO1TAB3 (07:53)
[2020-01-22] MEDS ORDERED: DICL1GEL3 TOP (08:23)
[2020-01-22] MEDS ORDERED: ACETAMINOPHEN TAB 650MG DOSE (2X325MG) PO ONE (08:45)
[2020-01-22] MEDS ORDERED: traMADol 50 MG TAB PO ONE (08:45)
== END 2020-01-22 08:52 | disposition home or self-care (01) ==
LOC: M ED 07:41
DX: M77.11 Lateral epicondylitis, right elbow (principal); E78.00 Pure hypercholesterolemia, unspecified; I10 Essential (primary) hypertension; J44.9 Chronic obstructive pulmonary disease, unspecified; F41.9 Anxiety disorder, unspecified; F31.89 Other bipolar disorder; Z87.01 Personal history of pneumonia (recurrent); Z98.61 Coronary angioplasty status; Z79.82 Long term (current) use of aspirin; Z79.899 Other long term (current) drug therapy; Z88.0 Allergy status to penicillin

== ENCOUNTER → 2020-06-04 | Outpatient (CLI) | payer MEDICARE ==
[~2020-06-04] MED LIST changes: -AMLO10TA5 PO; +AMLO1TAB25; +AMLO1TAB25 PO; +DICL1GEL3 TOP; +FURO20TA2; +MIRT1TAB17; +PROZ20CA11; +SERO1TAB3; +TRAZ-252
[2020-06-04 10:30] LABS: BASO # 0.1 10^3/uL (0.0-0.2); BASO % 0.8 % (0.0-1.0); EOS # 0.1 10^3/uL (0.0-0.5); EOS % 0.8 % (0.0-3.0); HEMATOCRIT 51.9 % (42.0-52.0); HEMOGLOBIN 18.4 g/dl (13.5-17.5); LYMPH # 3.2 10^3/uL (1.5-5.0); LYMPH % 28.8 % (24.0-44.0); MEAN CORPUSCULAR HEMOGLOBIN 32.2 pg (27.0-33.0); MEAN CORPUSCULAR HGB CONC 35.5 g/dl (32.0-36.5); MEAN CORPUSCULAR VOLUME 90.7 fl (80.0-96.0); MONO # 0.9 10^3/uL (0.0-0.8); MONO % 8.2 % (0.0-5.0); NEUTROPHILS # 6.6 10^3/uL (1.5-8.5); NEUTROPHILS % 59.6 % (36.0-66.0); PLATELET COUNT, AUTOMATED 375 10^3/uL (150-450); RED BLOOD COUNT 5.72 10^6/uL (4.30-6.10); WHITE BLOOD COUNT 11.1 10^3/uL (4.0-10.0)
[2020-06-04 11:11] LABS: ALBUMIN 4.3 GM/DL (3.2-5.2); ALT/SGPT 20 U/L (12-78); BILIRUBIN,TOTAL 0.3 MG/DL (0.2-1.0); BLOOD UREA NITROGEN 8 MG/DL (7-18); CALCIUM LEVEL 9.4 MG/DL (8.5-10.1); CARBON DIOXIDE LEVEL 21 MEQ/L (21-32); CHLORIDE LEVEL 104 MEQ/L (98-107); CHOLESTEROL LEVEL 246 MG/DL (<200); CREATININE FOR GFR 0.85 MG/DL (0.70-1.30); GLOMERULAR FILTRATION RATE > 60.0 (>56); GLUCOSE, FASTING 99 MG/DL (70-100); HDL CHOLESTEROL 41 MG/DL (>40); LDL CHOLESTEROL 155 MG/DL (<100); NON-HDL-C 205 MG/DL; POTASSIUM SERUM 4.3 MEQ/L (3.5-5.1); SODIUM LEVEL 134 MEQ/L (136-145); THYROID STIMULATING HORMONE 0.787 uIU/ML (0.358-3.740); TOTAL PROTEIN 7.3 GM/DL (6.4-8.2); TRIGLYCERIDES LEVEL 252 MG/DL (<150)
== END ==
LOC: M LAB 09:57
PROVIDERS: ATTEND Psychiatry & Neurology Psychiatry
DX: F31.9 Bipolar disorder, unspecified (principal); Z79.51 Long term (current) use of inhaled steroids; Z79.82 Long term (current) use of aspirin; Z79.899 Other long term (current) drug therapy

== ENCOUNTER → 2020-08-27 | Outpatient (CLI) | payer MEDICARE ==
[2020-08-27 09:29] LABS: BASO % 0.5 % (0.0-1.0); EOS # 0.1 10^3/uL (0.0-0.5); EOS % 1.3 % (0.0-3.0); HEMATOCRIT 43.2 % (42.0-52.0); HEMOGLOBIN 14.9 g/dl (13.5-17.5); LYMPH # 2.2 10^3/uL (1.5-5.0); MEAN CORPUSCULAR HEMOGLOBIN 31.3 pg (27.0-33.0); MEAN CORPUSCULAR HGB CONC 34.5 g/dl (32.0-36.5); MEAN CORPUSCULAR VOLUME 90.8 fl (80.0-96.0); MONO # 0.8 10^3/uL (0.0-0.8); MONO % 10.1 % (0.0-5.0); NEUTROPHILS # 4.5 10^3/uL (1.5-8.5); NEUTROPHILS % 58.3 % (36.0-66.0); PLATELET COUNT, AUTOMATED 251 10^3/uL (150-450); RED BLOOD COUNT 4.76 10^6/uL (4.30-6.10); WHITE BLOOD COUNT 7.7 10^3/uL (4.0-10.0)
[2020-08-27 09:41] LABS: INR 0.9; PARTIAL THROMBOPLASTIN TIME 28.8 SECONDS (24.2-38.5); PROTHROMBIN TIME 12.3 SECONDS (12.5-14.3)
[2020-08-27 09:48] LABS: BLOOD UREA NITROGEN 14 MG/DL (7-18); CALCIUM LEVEL 8.5 MG/DL (8.5-10.1); CARBON DIOXIDE LEVEL 24 MEQ/L (21-32); CHLORIDE LEVEL 108 MEQ/L (98-107); CREATININE FOR GFR 0.82 MG/DL (0.70-1.30); GLOMERULAR FILTRATION RATE > 60.0 (>56); GLUCOSE, FASTING 102 MG/DL (70-100); POTASSIUM SERUM 4.3 MEQ/L (3.5-5.1); SODIUM LEVEL 138 MEQ/L (136-145)
== END ==
LOC: M LAB 08:09
PROVIDERS: ATTEND Surgery Vascular Surgery
DX: I70.0 Atherosclerosis of aorta (principal)

== ENCOUNTER → 2020-08-27 | Outpatient (CLI) | payer MEDICARE | LOC: M LAB 08:07 | PROVIDERS: ATTEND Nurse Practitioner Psychiatric/Mental Health | DX: E55.9 Vitamin D deficiency, unspecified (principal); I70.0 Atherosclerosis of aorta ==

== ENCOUNTER → 2020-10-20 | Outpatient (CLI) | payer MEDICARE ==
[~2020-10-20] MED LIST changes: +RISP-9 PO; -RISP2TAB3 PO
--- NOTE | 2020-10-20 08:56 | REP ---
INDICATION: LT SHOULDER PAIN/WEAKNESS, R/O ROTATOR CUFF. COMPARISON: Comparison left shoulder MRI study is from August 30, 2019.. Left shoulder radiographs are from February 25, 2018. TECHNIQUE: Axial, oblique coronal and oblique sagittal imaging planes utilized. T1 and T2 weighted scans are included with without fat saturation in the usual fashion. Spin echo, turbo spin echo, and 3D what is sequences are utilized. FINDINGS: There is subcortical cyst formation in the humeral head which is actually new from the comparison study. These cystic changes have been correlated with shoulder impingement. Cortical and medullary bone signal intensity are otherwise normal. The glenohumeral and acromioclavicular joints are normally aligned. The left AC joint is somewhat widened suggesting old osteolysis versus prior resection of the distal clavicle. I am not given history of prior surgery nor do I see micrometallic artifact suggesting old post traumatic change. There is a little bony hypertrophy of the distal clavicle associated with this. These findings are unchanged. There is narrowing of the coracoclavicular interval associated with this. This is also unchanged. There is no evidence of glenohumeral joint effusion. There is a subacromial subdeltoid bursal effusion which is a little more prominent than on the prior study. There is evidence of a tendinitis tendinosis change in the supraspinatus. There is a distal footprint focus of T2 hyperintensity consistent with a insertion site partial thickness tear. This is more prominent than on the prior study. No retraction or complete tear is appreciated. There is some intrasubstance increased signal on T2 weighted scans at 1-2 o'clock on the humeral head on oblique coronal T2 weighted scans. No superior labral disruption is seen. The anterior and posterior labral cartilage is are unremarkable. There is some heterogeneous articular cartilage signal intensity implying chondromalacia. No paralabral or periarticular cyst or mass is seen. Biceps, subscapularis, and infraspinatus tendons are unremarkable. IMPRESSION: Subcortical cyst formation in the humeral head. Chronic changes in the distal clavicle and narrowing of the coracoclavicular interval. Tendinitis tendinosis changes in the distal supraspinatus tendon more advanced with partial-thickness insertion site tear producing T2 signal intensity which is more extensive than on the prior study. <Electronically signed by Riley Bowman > 10/20/20 [id number]
== END ==
LOC: M RAD 06:59
PROVIDERS: ATTEND Nurse Practitioner Family
DX: M85.422 Solitary bone cyst, left humerus (principal)

== ENCOUNTER 2021-02-16 09:47 | Emergency (ER) | payer MEDICARE ==
[~2021-02-16] VITALS: Ht 175.3 cm; Wt 75.3 kg
[~2021-02-16 09:47] MED LIST changes: -CLIN150C14 PO; +CLIN150C15 PO
[2021-02-16] MEDS ORDERED: ZALE10CA (09:58)
[2021-02-16] MEDS ORDERED: QUET300T2 (09:58)
[2021-02-16] MEDS ORDERED: HYDR-3363 (09:58)
[2021-02-16] MEDS ORDERED: FLUO10CA16 (09:58)
[2021-02-16] MEDS ORDERED: FLUO20CA22 (09:58)
[2021-02-16 10:06] VITALS: BP 186/88
== END 2021-02-16 11:07 | disposition left against medical advice (07) ==
LOC: M ED 09:47
DX: Z53.21 Procedure and treatment not carried out due to patient leaving prior to being seen by health care provider (principal)

== ENCOUNTER → 2021-03-08 | Outpatient (CLI) | payer MEDICARE ==
[~2021-03-08] MED LIST changes: +FLUO10CA16; +FLUO20CA22; +HYDR-3363; +QUET300T2; +ZALE10CA
[2021-03-08 09:24] LABS: HEMATOCRIT 45.4 % (42.0-52.0); HEMOGLOBIN 15.5 g/dl (13.5-17.5); MEAN CORPUSCULAR HEMOGLOBIN 30.5 pg (27.0-33.0); MEAN CORPUSCULAR HGB CONC 34.1 g/dl (32.0-36.5); MEAN CORPUSCULAR VOLUME 89.2 fl (80.0-96.0); PLATELET COUNT, AUTOMATED 299 10^3/uL (150-450); RED BLOOD COUNT 5.09 10^6/uL (4.30-6.10); WHITE BLOOD COUNT 11.2 10^3/uL (4.0-10.0)
[2021-03-08 09:51] LABS: ALBUMIN 3.8 GM/DL (3.2-5.2); ALT/SGPT 13 U/L (12-78); BILIRUBIN,TOTAL 0.2 MG/DL (0.2-1.0); BLOOD UREA NITROGEN 15 MG/DL (7-18); CARBON DIOXIDE LEVEL 23 MEQ/L (21-32); CHLORIDE LEVEL 103 MEQ/L (98-107); CHOLESTEROL LEVEL 294 MG/DL (<200); CHOLESTEROL RISK RATIO 6.255 (<5); CREATININE FOR GFR 0.77 MG/DL (0.70-1.30); GLOMERULAR FILTRATION RATE > 60.0 (>49); GLUCOSE, FASTING 90 MG/DL (70-100); HDL CHOLESTEROL 47 MG/DL (>40); LDL CHOLESTEROL 168 MG/DL (<100); NON-HDL-C 247 MG/DL; POTASSIUM SERUM 4.4 MEQ/L (3.5-5.1); SODIUM LEVEL 136 MEQ/L (136-145); TOTAL PROTEIN 6.8 GM/DL (6.4-8.2); TRIGLYCERIDES LEVEL 393 MG/DL (<150)
[2021-03-08 10:01] LABS: TOTAL 25(OH) VITAMIN D 20.9 NG/ML (30.0-100.0)
[2021-03-08 10:37] LABS: HEMOGLOBIN A1c 5.1 %
== END ==
LOC: M LAB 08:46
PROVIDERS: ATTEND Physician Assistant
DX: Z51.81 Encounter for therapeutic drug level monitoring (principal); Z13.220 Encounter for screening for lipoid disorders; Z79.899 Other long term (current) drug therapy; E55.9 Vitamin D deficiency, unspecified

== ENCOUNTER → 2022-04-22 | Outpatient (CLI) | payer MEDICARE, OTHER ==
[~2022-04-22] MED LIST changes: -CEFD1CAP8 PO; +CEFD300C41 PO; -CLIN150C15 PO; +CLIN150C17 PO; -FLUO10CA16; +FLUO10CA18; +GABA-283 PO; -GABA-845 PO; +GASTROGRAFIN SOLUTION 30ML (Q9963) As Ordered ONE; +ISOVUE-370 76% 100ML VIAL As Ordered ONE; +LOSA100T45 PO; -LOSA100T50 PO
== END ==
LOC: M RAD 06:17
PROVIDERS: ATTEND Physician Assistant
DX: K92.1 Melena (principal); Z95.828 Presence of other vascular implants and grafts; K76.0 Fatty (change of) liver, not elsewhere classified; E27.8 Other specified disorders of adrenal gland
CPT/HCPCS: 74177; Q9963; Q9967

== ENCOUNTER → 2022-06-15 | Outpatient (REF) | payer OTHER ==
[~2022-06-15] MED LIST changes: -GASTROGRAFIN SOLUTION 30ML (Q9963) As Ordered ONE; -ISOVUE-370 76% 100ML VIAL As Ordered ONE
[2022-06-15 16:59] LABS: BASO # 0.1 10^3/uL (0.0-0.2); BASO % 0.5 % (0.0-1.0); EOS # 0.1 10^3/uL (0.0-0.5); EOS % 1.3 % (0.0-3.0); HEMOGLOBIN 15.4 g/dl (13.5-17.5); LYMPH # 2.5 10^3/uL (1.5-5.0); LYMPH % 25.1 % (24.0-44.0); MEAN CORPUSCULAR HEMOGLOBIN 30.9 pg (27.0-33.0); MEAN CORPUSCULAR HGB CONC 33.5 g/dl (32.0-36.5); MEAN CORPUSCULAR VOLUME 92.4 fl (80.0-96.0); MONO # 0.9 10^3/uL (0.0-0.8); MONO % 9.4 % (2.0-8.0); NEUTROPHILS # 6.2 10^3/uL (1.5-8.5); NEUTROPHILS % 62.7 % (36.0-66.0); PLATELET COUNT, AUTOMATED 269 10^3/uL (150-450); RED BLOOD COUNT 4.98 10^6/uL (4.30-6.10); WHITE BLOOD COUNT 9.9 10^3/uL (4.0-10.0)
[2022-06-15 17:25] LABS: INR 0.9; PROTHROMBIN TIME 12.5 SECONDS (12.7-14.5)
[2022-06-15 19:57] LABS: ALBUMIN 3.7 GM/DL (3.2-5.2); ALT/SGPT 23 U/L (12-78); BILIRUBIN,TOTAL 0.3 MG/DL (0.2-1.0); BLOOD UREA NITROGEN 12 MG/DL (7-18); CALCIUM LEVEL 8.9 MG/DL (8.8-10.2); CARBON DIOXIDE LEVEL 23 MEQ/L (21-32); CHLORIDE LEVEL 99 MEQ/L (98-107); CREATININE FOR GFR 0.75 MG/DL (0.70-1.30); GLOMERULAR FILTRATION RATE > 60.0 (>49); GLUCOSE, FASTING 88 MG/DL (70-100); POTASSIUM SERUM 4.5 MEQ/L (3.5-5.1); SODIUM LEVEL 132 MEQ/L (136-145); TOTAL PROTEIN 6.6 GM/DL (6.4-8.2)
== END ==
LOC: M LAB REF 16:04
PROVIDERS: ATTEND Physician Assistant
DX: R10.2 Pelvic and perineal pain (principal); Z95.828 Presence of other vascular implants and grafts

== ENCOUNTER → 2022-08-10 | Outpatient (CLI) | payer OTHER ==
[2022-08-10 16:46] LABS: BASO % 0.3 % (0.0-1.0); EOS # 0.1 10^3/uL (0.0-0.5); EOS % 0.9 % (0.0-3.0); HEMATOCRIT 44.9 % (42.0-52.0); HEMOGLOBIN 15.2 g/dl (13.5-17.5); LYMPH # 2.6 10^3/uL (1.5-5.0); LYMPH % 26.8 % (24.0-44.0); MEAN CORPUSCULAR HEMOGLOBIN 30.6 pg (27.0-33.0); MEAN CORPUSCULAR HGB CONC 33.9 g/dl (32.0-36.5); MEAN CORPUSCULAR VOLUME 90.3 fl (80.0-96.0); MONO # 0.8 10^3/uL (0.0-0.8); NEUTROPHILS % 63.2 % (36.0-66.0); PLATELET COUNT, AUTOMATED 301 10^3/uL (150-450); RED BLOOD COUNT 4.97 10^6/uL (4.30-6.10); WHITE BLOOD COUNT 9.6 10^3/uL (4.0-10.0)
[2022-08-10 17:26] LABS: ALBUMIN 3.8 GM/DL (3.2-5.2); BILIRUBIN,DIRECT 0.1 MG/DL (0.0-0.2); BILIRUBIN,TOTAL 0.4 MG/DL (0.2-1.0); TOTAL PROTEIN 6.6 GM/DL (6.4-8.2)
[2022-08-10 18:00] LABS: TOTAL 25(OH) VITAMIN D 22.8 NG/ML (30.0-100.0)
== END ==
LOC: M WUC 11:08
PROVIDERS: ATTEND Nurse Practitioner Psychiatric/Mental Health
DX: E55.9 Vitamin D deficiency, unspecified (principal); F31.9 Bipolar disorder, unspecified; Z79.899 Other long term (current) drug therapy

== ENCOUNTER → 2022-08-22 | Outpatient (CLI) | payer OTHER | LOC: M RAD 06:29 | PROVIDERS: ATTEND Physician Assistant | DX: Z98.62 Peripheral vascular angioplasty status (principal); I70.0 Atherosclerosis of aorta ==

== ENCOUNTER → 2023-03-24 | Outpatient (CLI) | payer OTHER ==
[~2023-03-24] MED LIST changes: +CLOP75TA99 PO; -LOSA100T45 PO; +LOSA100T46 PO; -PAXI20TA29 PO; +PAXI20TA30 PO; -PLAV1TAB2 PO
[2023-03-24 09:42] LABS: HEMATOCRIT 40.5 % (42.0-52.0); HEMOGLOBIN 13.9 g/dl (13.5-17.5); MEAN CORPUSCULAR HEMOGLOBIN 30.8 pg (27.0-33.0); MEAN CORPUSCULAR HGB CONC 34.3 g/dl (32.0-36.5); MEAN CORPUSCULAR VOLUME 89.8 fl (80.0-96.0); PLATELET COUNT, AUTOMATED 275 10^3/uL (150-450); RED BLOOD COUNT 4.51 10^6/uL (4.30-6.10)
[2023-03-24 10:08] LABS: BLOOD UREA NITROGEN 16 MG/DL (9-23); CALCIUM LEVEL 9.2 MG/DL (8.3-10.6); CARBON DIOXIDE LEVEL 24 MMOL/L (20-31); CHLORIDE LEVEL 100 MMOL/L (98-107); GLOMERULAR FILTRATION RATE > 60.0 (>49); GLUCOSE, FASTING 91 MG/DL (74-106); POTASSIUM SERUM 4.8 MMOL/L (3.5-5.1); SODIUM LEVEL 134 MMOL/L (136-145)
[2023-03-24 10:18] LABS: INR 0.91; PARTIAL THROMBOPLASTIN TIME 28.5 SECONDS (24.8-34.2); PROTHROMBIN TIME 12.4 SECONDS (12.5-14.5)
== END ==
LOC: M LAB 09:06
PROVIDERS: ATTEND Surgery Vascular Surgery
DX: I70.213 Atherosclerosis of native arteries of extremities with intermittent claudication, bilateral legs (principal)

== ENCOUNTER 2023-03-30 07:34 | Inpatient (IN) | payer OTHER ==
[~2023-03-30] VITALS: Ht 172.7 cm; Wt 81.4 kg
[~2023-03-30 07:34] MED LIST changes: -HYDR-3363; +HYDR-3363 PO
[2023-03-30] MEDS ORDERED: NS 1,000 ML IV SCH (07:50)
[2023-03-30 08:10] LABS: HEMATOCRIT 44.6 % (42.0-52.0); HEMOGLOBIN 15.5 g/dl (13.5-17.5); MEAN CORPUSCULAR HEMOGLOBIN 30.4 pg (27.0-33.0); MEAN CORPUSCULAR HGB CONC 34.8 g/dl (32.0-36.5); MEAN CORPUSCULAR VOLUME 87.5 fl (80.0-96.0); PLATELET COUNT, AUTOMATED 309 10^3/uL (150-450); WHITE BLOOD COUNT 20.5 10^3/uL (4.0-10.0)
[2023-03-30 08:24] LABS: ATYPICAL LYMPH 2 % (0-5); EOSINOPHILS 1 % (0-3); LYMPHOCYTES 9 % (16-44); MONOCYTES 11 % (0-5); NEUTROPHILS 77 % (28-66)
[2023-03-30 08:25] LABS: PLATELET ESTIMATE NORMAL (NORMAL)
[2023-03-30 08:41] LABS: LIPASE 23 U/L (12-53)
[2023-03-30 08:43] LABS: ALBUMIN 3.5 G/DL (3.2-5.2); ALKALINE PHOSPHATASE 84 U/L (46-116); ALT/SGPT 17 U/L (7.0-40); AST/SGOT 16 U/L (<34); BILIRUBIN,DIRECT 0.2 MG/DL (<0.4); BILIRUBIN,TOTAL 0.8 MG/DL (0.3-1.2); BLOOD UREA NITROGEN 15 MG/DL (9-23); CALCIUM LEVEL 9.2 MG/DL (8.3-10.6); CARBON DIOXIDE LEVEL 24 MMOL/L (20-31); CHLORIDE LEVEL 97 MMOL/L (98-107); CREATININE FOR GFR 1.02 MG/DL (0.70-1.30); GLOMERULAR FILTRATION RATE > 60.0 (>49); GLUCOSE, FASTING 116 MG/DL (74-106); POTASSIUM SERUM 4.1 MMOL/L (3.5-5.1); SODIUM LEVEL 131 MMOL/L (136-145); TOTAL PROTEIN 6.8 G/DL (5.7-8.2)
[2023-03-30] MEDS ORDERED: ISOVUE-370 76% 100ML VIAL As Ordered ONE (08:55)
[2023-03-30] MEDS ORDERED: cefTRIAXone SOD 2 GM in D5W MINI-BAG PLUS 50 ML IV ONE (10:55)
[2023-03-30] MEDS ORDERED: ONDANSETRON 4MG 2ML VIAL IV ONE (10:55)
[2023-03-30] MEDS ORDERED: MORPHINE 2 MG/ML 1ML VIAL IV PRN (10:55)
[2023-03-30] MEDS ORDERED: metroNIDAZOLE 500 MG in IV 1 EA IV ONE (10:55)
[2023-03-30] MEDS ORDERED: MIRT1TAB17 PO (12:05)
[2023-03-30] MEDS ORDERED: DIAZ2TAB PO (12:05)
[2023-03-30] MEDS ORDERED: DOXE50CA PO (12:05)
[2023-03-30] MEDS ORDERED: QUET50TA4 PO (12:05)
[2023-03-30] MEDS ORDERED: FLUO40CA PO (12:05)
[2023-03-30] MEDS ORDERED: ASPI81TA26 PO (12:05)
[2023-03-30] MEDS ORDERED: D32000CA PO (12:05)
[2023-03-30] MEDS ORDERED: QUET400T42 PO (12:05)
[2023-03-30] MEDS ORDERED: HOME MED LIST COMPLETE! XX SCH (12:10)
[2023-03-30] MEDS: MORPHINE 2 MG/ML 1ML VIAL IV PRN ×2 (12:40→20:32)
[2023-03-30 12:48] LABS: RSV AMPLIFICATION NEGATIVE (NEGATIVE)
[2023-03-30] MEDS ORDERED: diazePAM 2 MG TAB PO PRN (13:00)
[2023-03-30 13:46] LABS: INR 0.95; PROTHROMBIN TIME 12.9 SECONDS (12.5-14.5)
[2023-03-30 13:47] LABS: PARTIAL THROMBOPLASTIN TIME 32.4 SECONDS (24.8-34.2)
[2023-03-30 14:00] VITALS: BP 141/78
[2023-03-30] MEDS: CIPROFLOXACIN 400 MG in IV 1 EA IV SCH (14:57)
[2023-03-30] MEDS: NS 1,000 ML IV SCH (14:57)
[2023-03-30] MEDS: QUEtiapine FUMARATE 50MG TAB PO SCH (14:58)
[2023-03-30] MEDS: FLUoxetine 20MG CAP PO SCH (14:59)
[2023-03-30] MEDS: LOSARTAN 50MG TABLET PO SCH (15:01)
[2023-03-30] MEDS: LACTOBACILLUS ACIDOPHILUS CAP (BACID) PO SCH (18:26)
[2023-03-30] MEDS: QUEtiapine FUMARATE **XR** 200MG TABLET PO SCH (20:21)
[2023-03-30] MEDS: MIRTAZAPINE 15 MG TAB PO SCH (20:21)
[2023-03-30] MEDS: DIVALPROEX 500MG *ER* TAB PO SCH (20:21)
[2023-03-30] MEDS: metroNIDAZOLE 500 MG in IV 1 EA IV SCH (20:21)
[2023-03-30] MEDS: DOXEPIN 25 MG CAP PO SCH (20:22)
[2023-03-30 21:00] VITALS: BP 118/66
[2023-03-30] MEDS ORDERED: ONDANSETRON 4MG 2ML VIAL IV PRN (21:10)
[2023-03-31] MEDS: CIPROFLOXACIN 400 MG in IV 1 EA IV SCH ×2 (01:46→12:33)
[2023-03-31] MEDS: metroNIDAZOLE 500 MG in IV 1 EA IV SCH ×3 (03:33→20:44)
[2023-03-31] MEDS: NS 1,000 ML IV SCH ×3 (03:33→17:38)
[2023-03-31 06:00] VITALS: BP 124/76
[2023-03-31 06:36] LABS: HEMATOCRIT 36.5 % (42.0-52.0); MEAN CORPUSCULAR HEMOGLOBIN 30.8 pg (27.0-33.0); MEAN CORPUSCULAR HGB CONC 34.2 g/dl (32.0-36.5); MEAN CORPUSCULAR VOLUME 89.9 fl (80.0-96.0); PLATELET COUNT, AUTOMATED 262 10^3/uL (150-450); RED BLOOD COUNT 4.06 10^6/uL (4.30-6.10)
[2023-03-31] MEDS: MORPHINE 2 MG/ML 1ML VIAL IV PRN ×4 (06:44→19:42)
[2023-03-31 06:53] LABS: HEMOGLOBIN 12.5 g/dl (13.5-17.5)
[2023-03-31 07:03] LABS: ALBUMIN 2.6 G/DL (3.2-5.2); ALKALINE PHOSPHATASE 92 U/L (46-116); ALT/SGPT 25 U/L (7.0-40); AST/SGOT 15 U/L (<34); BILIRUBIN,TOTAL 0.5 MG/DL (0.3-1.2); BLOOD UREA NITROGEN 11 MG/DL (9-23); CALCIUM LEVEL 8.2 MG/DL (8.3-10.6); CARBON DIOXIDE LEVEL 25 MMOL/L (20-31); CHLORIDE LEVEL 101 MMOL/L (98-107); GLOMERULAR FILTRATION RATE > 60.0 (>49); GLUCOSE, FASTING 94 MG/DL (74-106); POTASSIUM SERUM 4.1 MMOL/L (3.5-5.1); SODIUM LEVEL 135 MMOL/L (136-145); TOTAL PROTEIN 5.6 G/DL (5.7-8.2)
[2023-03-31] MEDS: LACTOBACILLUS ACIDOPHILUS CAP (BACID) PO SCH ×2 (08:54→17:38)
[2023-03-31] MEDS: CLOPIDOGREL 75 MG TAB PO SCH (08:54)
[2023-03-31] MEDS: FLUoxetine 20MG CAP PO SCH (08:55)
[2023-03-31] MEDS: QUEtiapine FUMARATE 50MG TAB PO SCH ×2 (08:55→15:04)
[2023-03-31] MEDS: ASPIRIN 81MG ENTERIC TABLET PO SCH (08:55)
[2023-03-31] MEDS: LOSARTAN 50MG TABLET PO SCH (08:55)
[2023-03-31] MEDS: ENOXAPARIN 40MG/0.4ML SYRINGE (J1650 PER 10MG) SC SCH (08:56)
[2023-03-31 14:00] VITALS: BP 124/70
[2023-03-31] MEDS ORDERED: MORPHINE 2 MG/ML 1ML VIAL IV PRN (20:05)
[2023-03-31] MEDS: MIRTAZAPINE 15 MG TAB PO SCH (20:44)
[2023-03-31] MEDS: MIRALAX *UNIT DOSE* 17GM PACKET PO SCH (20:45)
[2023-03-31] MEDS: QUEtiapine FUMARATE **XR** 200MG TABLET PO SCH (20:45)
[2023-03-31] MEDS: DOXEPIN 25 MG CAP PO SCH (20:45)
[2023-03-31] MEDS: DIVALPROEX 500MG *ER* TAB PO SCH (20:45)
[2023-04-01] MEDS: CIPROFLOXACIN 400 MG in IV 1 EA IV SCH ×2 (00:41→14:14)
[2023-04-01] MEDS: metroNIDAZOLE 500 MG in IV 1 EA IV SCH ×3 (03:41→20:16)
[2023-04-01] MEDS: NS 1,000 ML IV SCH (03:42)
[2023-04-01 05:49] LABS: HEMATOCRIT 34.6 % (42.0-52.0); HEMOGLOBIN 11.8 g/dl (13.5-17.5); MEAN CORPUSCULAR HGB CONC 34.1 g/dl (32.0-36.5); MEAN CORPUSCULAR VOLUME 90.8 fl (80.0-96.0); PLATELET COUNT, AUTOMATED 285 10^3/uL (150-450); RED BLOOD COUNT 3.81 10^6/uL (4.30-6.10); WHITE BLOOD COUNT 12.6 10^3/uL (4.0-10.0)
[2023-04-01 06:00] VITALS: BP 128/65
[2023-04-01 06:11] LABS: ALBUMIN 2.6 G/DL (3.2-5.2); ALKALINE PHOSPHATASE 134 U/L (46-116); ALT/SGPT 35 U/L (7.0-40); AST/SGOT 23 U/L (<34); BILIRUBIN,TOTAL 0.4 MG/DL (0.3-1.2); BLOOD UREA NITROGEN 9 MG/DL (9-23); CALCIUM LEVEL 8.4 MG/DL (8.3-10.6); CARBON DIOXIDE LEVEL 25 MMOL/L (20-31); CHLORIDE LEVEL 103 MMOL/L (98-107); CREATININE FOR GFR 0.82 MG/DL (0.70-1.30); GLOMERULAR FILTRATION RATE > 60.0 (>49); GLUCOSE, FASTING 88 MG/DL (74-106); SODIUM LEVEL 136 MMOL/L (136-145); TOTAL PROTEIN 5.5 G/DL (5.7-8.2)
[2023-04-01] MEDS: ASPIRIN 81MG ENTERIC TABLET PO SCH (08:23)
[2023-04-01] MEDS: QUEtiapine FUMARATE 50MG TAB PO SCH ×2 (08:23→16:55)
[2023-04-01] MEDS: LACTOBACILLUS ACIDOPHILUS CAP (BACID) PO SCH ×2 (08:23→17:38)
[2023-04-01] MEDS: FLUoxetine 20MG CAP PO SCH (08:23)
[2023-04-01] MEDS: CLOPIDOGREL 75 MG TAB PO SCH (08:23)
[2023-04-01] MEDS: MIRALAX *UNIT DOSE* 17GM PACKET PO SCH ×2 (08:23→20:17)
[2023-04-01] MEDS: ENOXAPARIN 40MG/0.4ML SYRINGE (J1650 PER 10MG) SC SCH (08:23)
[2023-04-01] MEDS: MORPHINE 2 MG/ML 1ML VIAL IV PRN ×2 (08:24→17:39)
[2023-04-01] MEDS: LOSARTAN 50MG TABLET PO SCH (08:27)
[2023-04-01 14:00] VITALS: BP 130/65
[2023-04-01] MEDS ORDERED: ACETAMINOPHEN TAB 650MG DOSE (2X325MG) PO PRN (17:50)
[2023-04-01] MEDS ORDERED: traMADol 50 MG TAB PO PRN (17:50)
[2023-04-01] MEDS: QUEtiapine FUMARATE **XR** 200MG TABLET PO SCH (20:16)
[2023-04-01] MEDS: DOXEPIN 25 MG CAP PO SCH (20:16)
[2023-04-01] MEDS: MIRTAZAPINE 15 MG TAB PO SCH (20:17)
[2023-04-01] MEDS: DIVALPROEX 500MG *ER* TAB PO SCH (20:17)
[2023-04-02] MEDS: CIPROFLOXACIN 400 MG in IV 1 EA IV SCH (01:33)
[2023-04-02] MEDS: metroNIDAZOLE 500 MG in IV 1 EA IV SCH (04:19)
[2023-04-02 05:08] VITALS: BP 126/66
[2023-04-02 05:42] LABS: HEMATOCRIT 33.4 % (42.0-52.0); HEMOGLOBIN 11.5 g/dl (13.5-17.5); MEAN CORPUSCULAR HEMOGLOBIN 30.5 pg (27.0-33.0); MEAN CORPUSCULAR HGB CONC 34.4 g/dl (32.0-36.5); MEAN CORPUSCULAR VOLUME 88.6 fl (80.0-96.0); PLATELET COUNT, AUTOMATED 316 10^3/uL (150-450); RED BLOOD COUNT 3.77 10^6/uL (4.30-6.10); WHITE BLOOD COUNT 10.5 10^3/uL (4.0-10.0)
[2023-04-02] MEDS ORDERED: LACTULOSE 20GM/30ML SYRUP UDC PO SCH (06:00)
[2023-04-02] MEDS ORDERED: CIPROFLOXACIN 500MG TABLET PO SCH (06:00)
[2023-04-02 06:03] LABS: ALBUMIN 2.6 G/DL (3.2-5.2); ALKALINE PHOSPHATASE 148 U/L (46-116); ALT/SGPT 31 U/L (7.0-40); AST/SGOT 15 U/L (<34); BILIRUBIN,TOTAL 0.4 MG/DL (0.3-1.2); BLOOD UREA NITROGEN 9 MG/DL (9-23); CALCIUM LEVEL 8.6 MG/DL (8.3-10.6); CARBON DIOXIDE LEVEL 24 MMOL/L (20-31); CHLORIDE LEVEL 105 MMOL/L (98-107); CREATININE FOR GFR 0.79 MG/DL (0.70-1.30); GLOMERULAR FILTRATION RATE > 60.0 (>49); GLUCOSE, FASTING 91 MG/DL (74-106); SODIUM LEVEL 134 MMOL/L (136-145); TOTAL PROTEIN 5.6 G/DL (5.7-8.2)
[2023-04-02] MEDS ORDERED: RISATAB3 PO (07:48)
[2023-04-02] MEDS ORDERED: TRAM50TA2 PO (07:48)
[2023-04-02] MEDS ORDERED: ACET1TAB55 PO (07:48)
[2023-04-02] MEDS ORDERED: CIPR250T3 PO (07:53)
[2023-04-02] MEDS ORDERED: METR-265 PO (07:53)
[2023-04-02] MEDS: ASPIRIN 81MG ENTERIC TABLET PO SCH (08:33)
[2023-04-02] MEDS: CLOPIDOGREL 75 MG TAB PO SCH (08:33)
[2023-04-02] MEDS: LACTOBACILLUS ACIDOPHILUS CAP (BACID) PO SCH (08:33)
[2023-04-02] MEDS: QUEtiapine FUMARATE 50MG TAB PO SCH (08:34)
[2023-04-02] MEDS: FLUoxetine 20MG CAP PO SCH (08:34)
[2023-04-02] MEDS: MIRALAX *UNIT DOSE* 17GM PACKET PO SCH (08:34)
[2023-04-02] MEDS: ENOXAPARIN 40MG/0.4ML SYRINGE (J1650 PER 10MG) SC SCH ×2 (08:35→08:36)
[2023-04-02 08:44] VITALS: BP 117/87
[2023-04-02] MEDS: LOSARTAN 50MG TABLET PO SCH (08:44)
[2023-04-02] MEDS ORDERED: COLA100C5 PO (10:05)
[2023-04-02] MEDS ORDERED: SENN-186 PO (10:05)
[2023-04-02] MEDS ORDERED: MIRA1POW3 PO (10:05)
[2023-04-02] MEDS ORDERED: metroNIDAZOLE (FLAGYL) 500MG TABLET PO SCH (14:00)
== END 2023-04-02 10:46 | disposition home or self-care (01) | DRG 872 ==
LOC: M ED 07:34 → EDBD 07:34 → M ED INP 12:21 → ENRESERV 12:57 → M MSPAV 14:54
PROVIDERS: ADMIT Internal Medicine; ATTEND Internal Medicine
DX: A41.9 Sepsis, unspecified organism (principal); E87.1 Hypo-osmolality and hyponatremia; K81.0 Acute cholecystitis; R19.7 Diarrhea, unspecified; E86.0 Dehydration; I73.9 Peripheral vascular disease, unspecified; Z95.828 Presence of other vascular implants and grafts; F31.9 Bipolar disorder, unspecified; F41.9 Anxiety disorder, unspecified; I10 Essential (primary) hypertension; Z90.49 Acquired absence of other specified parts of digestive tract; Z79.82 Long term (current) use of aspirin; Z79.899 Other long term (current) drug therapy; Z20.822 Contact with and (suspected) exposure to COVID-19; Z88.0 Allergy status to penicillin